=== PATIENT | male | born 1990 | race Caucasian/White ===

== ENCOUNTER 2020-04-01 16:09 | Inpatient (IN) | payer OTHER ==
[~2020-04-01] VITALS: Ht 167.6 cm; Wt 62.1 kg
[2020-04-01] MEDS ORDERED: IV NORMAL SALINE 1000 ML BAG IV ONE (16:15)
[2020-04-01] MEDS ORDERED: PANTOPRAZOLE SODIUM 40 MG VIAL IV ONE (16:15)
[2020-04-01] MEDS ORDERED: ONDANSETRON 4 MG/2 ML VIAL IV ONE (16:15)
[2020-04-01] MEDS ORDERED: OCTREOTIDE ACETATE DRIP 1,250 MCG in IV NORMAL SALINE 250 ML IV ONE (16:15)
[2020-04-01] MEDS ORDERED: PANTOPRAZOLE SODIUM 40 MG VIAL ONE (16:44)
[2020-04-01] MEDS ORDERED: ONDANSETRON 4 MG/2 ML VIAL ONE (16:44)
[2020-04-01 16:50] LABS: BASOPHILS # (AUTO) 0.1 K/uL (0.0-8.0); BASOPHILS % (AUTO) 0.9 % (0.0-2.0); EOSINOPHILS # (AUTO) 0.1 K/uL (0.0-0.7); EOSINOPHILS % (AUTO) 0.4 % (0.0-7.0); HEMATOCRIT 21.6 % (36.7-47.1); HEMOGLOBIN 7.5 g/dL (12.5-16.3); LYMPHOCYTES % (AUTO) 7.9 % (20.5-51.5); MEAN CORPUSCULAR HEMOGLOBIN 39.2 uug (23.8-33.4); MEAN CORPUSCULAR HGB CONC 35 g/dL (32.5-36.3); MEAN CORPUSCULAR VOLUME 112.8 fL (73.0-96.2); MONOCYTES # (AUTO) 1.4 K/uL (2.0-10.0); MONOCYTES % (AUTO) 11.2 % (0.0-11.0); NEUTROPHILS # (AUTO) 10.1 K/uL (1.8-8.9); NEUTROPHILS % (AUTO) 79.6 % (38.5-71.5); PLATELET COUNT (AUTO) 187 K/uL (152-348); WHITE BLOOD COUNT (AUTO) 12.7 K/uL (3.6-10.2)
[2020-04-01 17:03] LABS: MAGNESIUM 1.4 mg/dL (1.8-2.4); PHOSPHOROUS 1.4 mg/dL (2.5-4.9)
[2020-04-01 17:07] LABS: RED BLOOD CELL COUNT(AUTO) 1.92 MIL/uL (4.06-5.63)
[2020-04-01 17:17] LABS: CREATININE 0.9 mg/dL (0.6-1.3); TOTAL PROTEIN, SERUM 7.5 g/dL (6.4-8.2)
[2020-04-01 17:19] LABS: ACETAMINOPHEN < 2.0 ug/mL (10-30)
[2020-04-01 17:24] LABS: POTASSIUM 1.5 mmol/L (3.5-5.1)
[2020-04-01] MEDS ORDERED: IV D5/ 0.9% NACL 1,000 ML IV ONE (17:30)
[2020-04-01] MEDS ORDERED: THIAMINE HCL INJ 100 MG in IV DEXTROSE 5% 50 ML IV SCH (17:30)
--- NOTE | 2020-04-01 17:35 | NUR ---
Attempted to palce NG, pt able to follow directions moderatly but started having nose bleed. Dr Wyatt made awre.
[2020-04-01 17:38] LABS: ETHANOL < 3 MG/DL (0-0)
[2020-04-01 17:55] LABS: *OCCULT BLOOD STOOL POSITIVE (NEGATIVE)
[2020-04-01] MEDS: FOLIC ACID 1 MG in IV DEXTROSE 5% 50 ML IV SCH (18:00)
[2020-04-01] MEDS ORDERED: THIAMINE HCL 200 MG/2 ML VIAL ONE (18:09)
[2020-04-01] MEDS ORDERED: FOLIC ACID 5 MG/ML VIAL IV ONE (18:10)
[2020-04-01] MEDS: POTASSIUM CHLORIDE 50 ML IV SCH ×2 (18:36→20:59)
--- NOTE | 2020-04-01 18:40 | NUR ---
Paged [facility] for admit, awaiting call back.
--- NOTE | 2020-04-01 18:52 | NUR ---
CRISTY Selby spoke to [facility] [employer]NER for admit to CCU.
--- NOTE | 2020-04-01 18:53 | NUR ---
Spoke to cruzito Adame for LTAC, located within [facility].
[2020-04-01] MEDS ORDERED: ONDANSETRON 4 MG/2 ML VIAL IV PRN (19:00)
[2020-04-01] MEDS ORDERED: OCTREOTIDE ACETATE DRIP 1,250 MCG in IV NORMAL SALINE 247.5 ML IV PRN (19:00)
--- NOTE | 2020-04-01 20:00 | NUR ---
Karli More SECONDARY SCHOOL TEACHER LIBRARIAN in unit, though patient has yet to arrive in the unit. All admission orders discussed and clarified. ED order for potassium and magnesium replacement to be completed, and 1 unit PRBCs to be transfused.
--- NOTE | 2020-04-01 20:05 | NUR ---
Received patient from ER via gurney. Patient is a 30 y/o male who is very ill appearing with complete body jaundice and yellowing of the sclera. Abdomen is distended with tenderness present. Patient is not currently alert drifting in and out of consciousness, but responding to touch. Patient presented to the ED complaining of coffee ground emesis and bloody stool. This patient has a history of chronic heavy ETOH abuse and liver failure. Diagnosis from ED is esophageal varices and GI bleed. Patient arrived in street clothes with a 20g peripheral IV in the left AC and the CHASTITY. Patient is currently on Sandostatin drip @50mcg/hr. Patient has dried blood around the nares from failed NGT placement in ER resulting in epistaxis. Patient arrived in the unit with a large black and tarry stool which had soiled his clothes. Patient also hiccuping on arrival. Patient cleaned, placed in a gown and hooked up to the monitor.
--- NOTE | 2020-04-01 20:07 | NUR ---
Pt. admitted to CCU , under care of DELLA Calvillo Belongs List completed and all belongings sent, lunchroom monitor used for transfer
[2020-04-01 20:10] VITALS: BP 123/67
[2020-04-01] MEDS ORDERED: IV D5W-0.45% NS +20 KCL 1,000 ML IV ONE (20:54)
[2020-04-01 21:00] VITALS: BP 117/64
[2020-04-01] MEDS: IV D5W-0.45% NS +20 KCL 1,000 ML IV PRN (21:03)
[2020-04-01 21:35] VITALS: BP 115/71
[2020-04-01 21:50] VITALS: BP 98/58
[2020-04-01] MEDS ORDERED: HEPARIN SODIUM,PORCINE 5,000 UNITS/ML VIAL SQ STA (21:55)
[2020-04-01 22:00] VITALS: BP 93/52
[2020-04-01] MEDS ORDERED: HEPARIN/D5W DRIP 500 ML IV PRN (22:00)
[2020-04-01] MEDS: PANTOPRAZOLE SODIUM 40 MG VIAL IV SCH (22:03)
[2020-04-01] MEDS: MAGNESIUM SULFATE/D5W 100 ML IV SCH (22:55)
[2020-04-01 23:00] VITALS: BP 115/56
[2020-04-02] VITALS (41 sets, daily range): BP systolic 78–147; BP diastolic 40–78
[2020-04-02] MEDS: MAGNESIUM SULFATE/D5W 100 ML IV SCH (00:10)
--- NOTE | 2020-04-02 00:30 | NUR ---
Blood transfusion complete, no reactions noted. H&H to be drawn in 1 hour.
[2020-04-02 01:07] LABS: *CLARITY,URINE SLIGHTLY CLOUDY (CLEAR); *KETONES,URINE NEGATIVE (NEGATIVE); *UROBILINOGEN,URINE 0.2 E.U./dl (NORMAL); LEUKOCYTE ESTERASE ,URINE NEGATIVE (NEGATIVE); NITRITE, URINE NEGATIVE (NEGATIVE); PH,URINE 6.5 (5.0-8.0); UGLUCOSE TRACE (NEGATIVE)
[2020-04-02 01:11] LABS: *BILIRUBIN,URIN 3+ (NEGATIVE); *BLOOD, URINE TRACE (NEGATIVE)
[2020-04-02 01:12] LABS: *COLOR,URINE ORANGE (YELLOW)
[2020-04-02 01:17] LABS: *AMPHETAMINE, URINE NEGATIVE (NEGATIVE); *CANNABINOID, URINE NEGATIVE (NEGATIVE); *COCCAINE, URINE NEGATIVE (NEGATIVE); *OPIATE, URINE NEGATIVE (NEGATIVE); *PHENCYCLIDINE SCREEN,URINE NEGATIVE (NEGATIVE); BACTERIA,URINE NONE SEEN /HPF (NONE SEEN); MUCUS,URINE FEW /LPF (0-FEW); SQUAMOUS EPITHELIAL CELL,UR FEW /HPF (NONE SEEN); WBC,URINE 0-3 /HPF (0-3)
[2020-04-02 01:52] LABS: HEMATOCRIT 22.9 % (36.7-47.1); HEMOGLOBIN 8.1 g/dL (12.5-16.3)
[2020-04-02] MEDS ORDERED: THIAMINE HCL INJ 100 MG in IV DEXTROSE 5% 50 ML IV SCH ×2 (06:30→08:00)
[2020-04-02] MEDS: OCTREOTIDE ACETATE DRIP 500 MCG in IV NORMAL SALINE 99 ML IV SCH ×2 (06:47→16:30)
[2020-04-02 07:00] LABS: BILIRUBIN,TOTAL 29.3 mg/dL (0.2-1.0); CREATININE 1.1 mg/dL (0.6-1.3); TOTAL PROTEIN, SERUM 6.5 g/dL (6.4-8.2)
[2020-04-02 07:03] LABS: PHOSPHOROUS 0.5 mg/dL (2.5-4.9); POTASSIUM 1.6 mmol/L (3.5-5.1)
[2020-04-02 08:03] LABS: BASOPHILS # (AUTO) 0.2 K/uL (0.0-8.0); BASOPHILS % (AUTO) 1.5 % (0.0-2.0); EOSINOPHILS # (AUTO) 0.1 K/uL (0.0-0.7); EOSINOPHILS % (AUTO) 0.5 % (0.0-7.0); HEMATOCRIT 23.2 % (36.7-47.1); HEMOGLOBIN 8.2 g/dL (12.5-16.3); LYMPHOCYTES # (AUTO) 2.3 K/uL (20.0-40.0); LYMPHOCYTES % (AUTO) 17.8 % (20.5-51.5); MEAN CORPUSCULAR HEMOGLOBIN 38.2 uug (23.8-33.4); MEAN CORPUSCULAR HGB CONC 36 g/dL (32.5-36.3); MEAN CORPUSCULAR VOLUME 107.6 fL (73.0-96.2); MONOCYTES # (AUTO) 0.8 K/uL (2.0-10.0); MONOCYTES % (AUTO) 6.1 % (0.0-11.0); NEUTROPHILS # (AUTO) 9.7 K/uL (1.8-8.9); NEUTROPHILS % (AUTO) 74.1 % (38.5-71.5); PLATELET COUNT (AUTO) 156 K/uL (152-348); WHITE BLOOD COUNT (AUTO) 13.1 K/uL (3.6-10.2)
[2020-04-02 08:11] LABS: RED BLOOD CELL COUNT(AUTO) 2.16 MIL/uL (4.06-5.63)
[2020-04-02] MEDS: CEFTRIAXONE 1 G in IV DEXTROSE 5% 50 ML IV SCH (08:12)
[2020-04-02] MEDS: PANTOPRAZOLE SODIUM 40 MG VIAL IV SCH ×2 (08:12→20:48)
[2020-04-02] MEDS ORDERED: CEFTRIAXONE 1 G VIAL IV SCH (09:00)
[2020-04-02] MEDS: IV D5W-0.45% NS +20 KCL 1,000 ML IV PRN (09:59)
--- NOTE | 2020-04-02 10:00 | NUR ---
Patient examine by cardiology services, Dr. Lomeli.
[2020-04-02] MEDS ORDERED: MORPHINE SULFATE 2 MG/1 ML DISP.SYRIN IM PRN (10:30)
[2020-04-02] MEDS ORDERED: PHYTONADIONE 10 MG/1 ML AMPUL SQ ONE (10:45)
[2020-04-02] MEDS: LORAZEPAM 2 MG/1 ML VIAL IV PRN (12:54)
[2020-04-02] MEDS: POTASSIUM CHLORIDE 20 MEQ in IV D5/ 0.9% NACL 1,000 ML IV PRN (14:23)
[2020-04-02] MEDS ORDERED: ACETAMINOPHEN 325 MG TABLET PO ONE (15:00)
[2020-04-02] MEDS ORDERED: diphenhydrAMINE 50 MG/1 ML VIAL IV ONE (15:00)
[2020-04-02] MEDS ORDERED: POTASSIUM PHOSPHATE MM 15 MMOL in IV NORMAL SALINE 250 ML IV ONE (15:30)
[2020-04-02] MEDS: LACTULOSE 20 G/30 ML LIQUID UDC PO SCH ×3 (15:34→23:38)
--- NOTE | 2020-04-02 15:35 | NUR ---
A call to Dr. Tico Damian she was informed that pt. is bleeding with minor procedures, and that patient is semi-lethargic with high risk of aspiration. Addendum: 04/02/20 at 1645 by SANDOR LUGO RN Benadryl also not given pt,. with 1st plasma almost finished when order received Md informed.
[2020-04-02 15:55] LABS: IRON, SERUM 105 ug/dL (50-175)
[2020-04-02 16:31] LABS: FERRITIN 1897 ng/mL (26-388); LACTATE DEHYDROGENASE 355 U/L (85-227)
[2020-04-02] MEDS: POTASSIUM PHOSPHATE MM 7.5 MMOL in IV NORMAL SALINE 97.5 ML IV SCH ×2 (17:06→19:52)
[2020-04-02 18:10] LABS: BAND % (MANUAL) 4 % (0-10); LYMPHOCYTES % (MANUAL) 8 % (20-40); MONOCYTES % (MANUAL) 4 % (2-10); NEUTROPHILS % (MANUAL) 84 % (42-75)
[2020-04-02] MEDS: THIAMINE HCL INJ 100 MG in IV DEXTROSE 5% 50 ML IV SCH (18:10)
[2020-04-02] MEDS: VASOPRESSIN 40 UNIT in IV NORMAL SALINE 40 ML IV PRN ×2 (18:25→20:46)
[2020-04-02] MEDS: FOLIC ACID 1 MG in IV DEXTROSE 5% 50 ML IV SCH (18:39)
--- NOTE | 2020-04-02 19:00 | NUR ---
Received patient in bed asleep. Patient is minimally responsive to touch and his mental status is altered. Patient remains in a state of severe coagulopathy and is currently receiving a second unit of FFP. It is unlikely that the patient will be able to take his PO medications due to his mental status. Previous failed attempts at inserting an NG tube resulted in bleeding from the nose. The epistaxis from previous attempts and the patients coagulation issues preclude placing an NG tube at this time.
--- NOTE | 2020-04-02 20:00 | NUR ---
Unable to administer PO medications due to patients mental status. Patient is not currently alert and not able to take PO medications.
--- NOTE | 2020-04-02 23:49 | NUR ---
Attempted to arouse the patient to take his PO medications. Patient remains responsive only to touch and is not alert enough to take his PO medications.
[2020-04-03] VITALS (96 sets, daily range): BP systolic 94–163; BP diastolic 40–96
[2020-04-03] MEDS: VASOPRESSIN 40 UNIT in IV NORMAL SALINE 40 ML IV PRN ×5 (00:57→20:37)
[2020-04-03] MEDS: POTASSIUM CHLORIDE 20 MEQ in IV D5/ 0.9% NACL 1,000 ML IV PRN ×2 (03:07→17:38)
[2020-04-03] MEDS: LACTULOSE 20 G/30 ML LIQUID UDC PO SCH ×2 (04:00→08:00)
[2020-04-03 05:49] LABS: MAGNESIUM 1.7 mg/dL (1.8-2.4); TOTAL PROTEIN, SERUM 6.6 g/dL (6.4-8.2)
[2020-04-03 05:51] LABS: BASOPHILS # (AUTO) 0.1 K/uL (0.0-8.0); BASOPHILS % (AUTO) 0.6 % (0.0-2.0); EOSINOPHILS % (AUTO) 0.3 % (0.0-7.0); LYMPHOCYTES # (AUTO) 1.9 K/uL (20.0-40.0); LYMPHOCYTES % (AUTO) 19.6 % (20.5-51.5); MEAN CORPUSCULAR HEMOGLOBIN 40.4 uug (23.8-33.4); MEAN CORPUSCULAR HGB CONC 37 g/dL (32.5-36.3); MEAN CORPUSCULAR VOLUME 109.2 fL (73.0-96.2); MONOCYTES # (AUTO) 0.8 K/uL (2.0-10.0); MONOCYTES % (AUTO) 8.8 % (0.0-11.0); NEUTROPHILS # (AUTO) 6.8 K/uL (1.8-8.9); NEUTROPHILS % (AUTO) 70.7 % (38.5-71.5); PLATELET COUNT (AUTO) 117 K/uL (152-348); WHITE BLOOD COUNT (AUTO) 9.6 K/uL (3.6-10.2)
[2020-04-03 05:57] LABS: PHOSPHOROUS 0.7 mg/dL (2.5-4.9); POTASSIUM 1.2 mmol/L (3.5-5.1)
[2020-04-03 06:03] LABS: HEMATOCRIT 18.6 % (36.7-47.1)
[2020-04-03 06:05] LABS: HEMOGLOBIN 6.9 g/dL (12.5-16.3)
--- NOTE | 2020-04-03 06:50 | NUR ---
Patient remains in critical condition. Patient still with a very altered level of consciousness, responsive to touch and pain. Several critical labs resulted including hemoglobin, hematocrit, potassium, and phosphorus. Several called placed to Dr. Ortiz without any return call. Attempting to escalate to a higher physician. Will continue to endorse this urgent matter to the day shift RN.
--- NOTE | 2020-04-03 07:35 | NUR ---
Contacted Dr. Cobian about the lactulose order as patient cannot take po lactulose. orders received to give rectal 200g BID.
[2020-04-03] MEDS ORDERED: POTASSIUM PHOSPHATE MM 15 MMOL in IV NORMAL SALINE 250 ML IV ONE ×2 (08:00→14:00)
[2020-04-03] MEDS: CEFTRIAXONE 1 G in IV DEXTROSE 5% 50 ML IV SCH (08:24)
[2020-04-03] MEDS: PANTOPRAZOLE SODIUM 40 MG VIAL IV SCH ×2 (08:24→20:40)
[2020-04-03] MEDS: LORAZEPAM 2 MG/1 ML VIAL IV PRN (09:04)
--- NOTE | 2020-04-03 09:33 | NUR ---
Contacted Dr. Lomeli as patient's HR is elevated to 129, reported electrolyte levels and orders received for redraw of potassium and to give 20 meq potassium chloride IV.
[2020-04-03] MEDS: MAGNESIUM SULFATE/D5W 100 ML IV SCH ×2 (10:04→10:58)
[2020-04-03 10:53] LABS: POTASSIUM 1.3 mmol/L (3.5-5.1)
[2020-04-03] MEDS: POTASSIUM CHLORIDE 50 ML IV SCH ×8 (10:59→23:35)
[2020-04-03] MEDS: IRR STERIL WATER FOR IRR 700 ML, LACTULOSE 200 G PR SCH ×4 (11:20→22:02)
[2020-04-03] MEDS ORDERED: MISCELLANEOUS MED RC SCH (12:00)
[2020-04-03 17:09] LABS: *CHLORIDE RNDM,URINE 138 mmol/L (100-250); *POTASSIUM RNDM,URINE 14 mmol/L (25-125)
[2020-04-03] MEDS ORDERED: ACETAMINOPHEN 325 MG TABLET PO ONE (17:15)
[2020-04-03] MEDS ORDERED: diphenhydrAMINE 50 MG/1 ML VIAL IV ONE (17:15)
[2020-04-03] MEDS ORDERED: VASOPRESSIN 40 UNIT in IV NORMAL SALINE 40 ML IV PRN (18:00)
--- NOTE | 2020-04-03 19:27 | NUR ---
Dr. Doshi notified of DIC panel results. Orders received. Spoke to Brayden in laboratory re: FFPs; will be ready for citrus picker at 2200 (no available blood bank personnel till 2200).
--- NOTE | 2020-04-03 19:30 | NUR ---
Patient continues to be confused, on room air saturation 100%, sinus rhythm on the monitor 75BPM, hemodynamically stable, afebrile. Johnson draining dark orange urine. Bed in low position, side rails up x2.
[2020-04-03] MEDS: FOLIC ACID 1 MG in IV DEXTROSE 5% 50 ML IV SCH (19:33)
--- NOTE | 2020-04-03 19:35 | NUR ---
Report received. Patient obtunded, with hiccups, grimaces to pain but no appropriate verbal responses. BPs stable; SR on the monitor rate 70's-80's. On continuous Vasopressin drip via CHASTITY PICC line. Assessment done.
[2020-04-03 20:05] LABS: BAND % (MANUAL) 6 % (0-10); EOSINOPHILS % (MANUAL) 1 % (0-8); LYMPHOCYTES % (MANUAL) 15 % (20-40); MONOCYTES % (MANUAL) 6 % (2-10); NEUTROPHILS % (MANUAL) 72 % (42-75)
[2020-04-03] MEDS: THIAMINE HCL INJ 100 MG in IV DEXTROSE 5% 50 ML IV SCH (20:06)
--- NOTE | 2020-04-03 20:30 | NUR ---
Spoke to Etta Cobian re: Kcl infusion. Advised RN to repeat K level after infusion is completed. Patient medicated with Thorazine IM for hiccups.
[2020-04-03] MEDS: chlorproMAZINE 50 MG/2 ML AMPUL IM PRN (20:35)
--- NOTE | 2020-04-03 21:10 | NUR ---
Dr. Nolan called with orders. Kcl infusion in progress. Patient continues to have hiccups. O2 saturations maintaining above 95% on room air.
--- NOTE | 2020-04-03 22:38 | NUR ---
1st unit of FFPs started. VS stable. Still with on and off hiccups.
--- NOTE | 2020-04-03 22:47 | NUR ---
Dr. Nolan notified of K level=1.5. 1st bag of Kcl 60 meq infusing. No further orders.
--- NOTE | 2020-04-03 23:15 | NUR ---
O2 saturations in the 70's. Noted to have stridor and increased work of breathing. O2 100% non rebreather mask administered; saturations improved. Calls placed to Dr. Cobian and patient's sister Trinidad. Order received from Dr. Cobian to have ER MD intubate patient. Patient's sister Trinidad informed of intubation and patient's condition; verbalized that she wants everything done for her brother. RT Zachary informed of intubation procedure. Spoke to Dr. Javed REYES.
[2020-04-03] MEDS ORDERED: ETOMIDATE 20 MG/10 ML VIAL IV ONE (23:30)
[2020-04-03] MEDS ORDERED: SUCCINYLCHOLINE CHLORIDE 200 MG/10 ML VIAL IV ONE (23:30)
--- NOTE | 2020-04-03 23:30 | NUR ---
Pt intubated by ED MD UREÑA and subsequently placed on ventilator settings AC 12, 500 and FIO2-100%. Pt to be monitored throughout the shift. No resp. distress noted.
--- NOTE | 2020-04-03 23:35 | NUR ---
Dr. Burt and RTs here. Patient orally intubated with ETT size 7.5; premedicated with Etomidate 20 mg and Succinylcholine 150 mg IV. PCXR done for ETT placement.
[2020-04-03] MEDS: PROPOFOL 100 ML IV PRN (23:52)
--- NOTE | 2020-04-03 23:55 | NUR ---
ETT placement ok as per Dr. Burt. Patient's sister Trinidad called verbalizing desire to visit and see patient; advised of hospital policy re: visitation. Will discuss with [employer] Manager Tamika. Sister was able to see patient via Face time.
[2020-04-04] VITALS (58 sets, daily range): BP systolic 82–138; BP diastolic 37–83
[2020-04-04] MEDS: POTASSIUM CHLORIDE 50 ML IV SCH ×20 (00:43→23:11)
--- NOTE | 2020-04-04 01:20 | NUR ---
ABGs done; Francois Meier notified of results. FIO2 decreased to 60% by RT. Diprivan drip titrate for adequate sedation.
[2020-04-04] MEDS: VASOPRESSIN 40 UNIT in IV NORMAL SALINE 40 ML IV PRN (01:23)
[2020-04-04] MEDS ORDERED: OCTREOTIDE ACETATE DRIP 500 MCG in IV NORMAL SALINE 99 ML IV PRN (01:45)
--- NOTE | 2020-04-04 01:55 | NUR ---
Stat H/H drawn by [employer] as ordered by Francois Meier NP; awaiting results.
[2020-04-04 02:04] LABS: HEMATOCRIT 21.2 % (36.7-47.1); HEMOGLOBIN 7.7 g/dL (12.5-16.3)
[2020-04-04] MEDS ORDERED: OCTREOTIDE ACETATE 500 MCG/1 ML VIAL ONE (02:16)
--- NOTE | 2020-04-04 02:23 | NUR ---
Sandostatin drip started as ordered by Speedy Meier NP. Aubrie iraheta.
--- NOTE | 2020-04-04 02:47 | NUR ---
Results of H/H called to Francois Meier NP; orders received.
--- NOTE | 2020-04-04 03:00 | NUR ---
Diprivan drip titrated for adequate sedation. See IV spread sheet for rates/dosages.
[2020-04-04] MEDS: PROPOFOL 100 ML IV PRN ×4 (05:26→21:50)
--- NOTE | 2020-04-04 06:00 | NUR ---
ABGS drawn by RT. IM0=442; FIO2 decreased to 40% by RT.
[2020-04-04] MEDS: POTASSIUM CHLORIDE 20 MEQ in IV D5/ 0.9% NACL 1,000 ML IV PRN (06:19)
[2020-04-04 06:24] LABS: BASOPHILS # (AUTO) 0.1 K/uL (0.0-8.0); BASOPHILS % (AUTO) 0.5 % (0.0-2.0); EOSINOPHILS % (AUTO) 0.4 % (0.0-7.0); HEMATOCRIT 21.5 % (36.7-47.1); HEMOGLOBIN 7.7 g/dL (12.5-16.3); LYMPHOCYTES # (AUTO) 1.9 K/uL (20.0-40.0); MEAN CORPUSCULAR HEMOGLOBIN 38.1 uug (23.8-33.4); MEAN CORPUSCULAR HGB CONC 36 g/dL (32.5-36.3); MEAN CORPUSCULAR VOLUME 105.9 fL (73.0-96.2); MONOCYTES % (AUTO) 9.7 % (0.0-11.0); NEUTROPHILS # (AUTO) 7.2 K/uL (1.8-8.9); NEUTROPHILS % (AUTO) 70.4 % (38.5-71.5); PLATELET COUNT (AUTO) 121 K/uL (152-348); WHITE BLOOD COUNT (AUTO) 10.3 K/uL (3.6-10.2)
[2020-04-04 06:31] LABS: RED BLOOD CELL COUNT(AUTO) 2.03 MIL/uL (4.06-5.63)
[2020-04-04 06:46] LABS: THYROID STIMULATING HORMONE 0.077 mIU/mL (0.358-3.740)
[2020-04-04 06:55] LABS: BILIRUBIN,TOTAL 36.3 mg/dL (0.2-1.0); MAGNESIUM 2.2 mg/dL (1.8-2.4); TOTAL PROTEIN, SERUM 6.6 g/dL (6.4-8.2)
[2020-04-04 06:58] LABS: POTASSIUM 1.4 mmol/L (3.5-5.1)
[2020-04-04 06:59] LABS: PHOSPHOROUS 0.8 mg/dL (2.5-4.9)
[2020-04-04] MEDS ORDERED: ETOMIDATE 20 MG/10 ML VIAL IV ONE ×2 (07:00→18:19)
[2020-04-04] MEDS ORDERED: SUCCINYLCHOLINE CHLORIDE 200 MG/10 ML VIAL IV ONE (07:00)
--- NOTE | 2020-04-04 07:30 | NUR ---
PT RECEIVED ORALLY INTUBATED WITH A SIZE 7.5 ETT SECURED WITH ANCHOR-FAST APPROX. 25CM AT THE LIP. PT IS ON CMV ON SETTINGS OF A/C 12, VT 500, 40%, 0 PEEP. VENT PARAMETERS AND ALARMS CHECKED, ALARMS ARE AUDIBLE. PT IS TOLERATING VENT WELL, NO RESP. DISTRESS NOTED. BVM AT BEDSIDE. VENT PLUGGED INTO RED OUTLET. SUCTION PRN. WILL CONTINUE TO MONITOR.
[2020-04-04] MEDS ORDERED: POTASSIUM PHOSPHATE MM 15 MMOL in IV NORMAL SALINE 250 ML IV ONE (08:00)
[2020-04-04] MEDS: CEFTRIAXONE 1 G in IV DEXTROSE 5% 50 ML IV SCH (08:39)
[2020-04-04] MEDS: PANTOPRAZOLE SODIUM 40 MG VIAL IV SCH (08:43)
[2020-04-04] MEDS: IRR STERIL WATER FOR IRR 700 ML, LACTULOSE 200 G PR SCH ×4 (08:44→21:44)
[2020-04-04 09:46] LABS: HEMATOCRIT 24.6 % (36.7-47.1)
[2020-04-04] MEDS: SPIRONOLACTONE 50 MG TABLET PO SCH (10:00)
[2020-04-04] MEDS ORDERED: PANTOPRAZOLE SODIUM IV 80 MG in IV DEXTROSE 5% 500 ML IV SCH (10:00)
--- NOTE | 2020-04-04 10:27 | NUR ---
a call from GI physician Dr. Villarreal report given and as stated by Md. He'll talk to family and later on consent for endoscopy.
--- NOTE | 2020-04-04 10:45 | NUR ---
Pulmonary services, Dr. Andres in the unit to see and examine pt. Report given.
--- NOTE | 2020-04-04 10:46 | NUR ---
Attending physician Dr. Gerald Echeverria in the unit to see and examine pt. report given.
[2020-04-04 11:56] LABS: ABG BASE EXCESS 2.7 mmol/L; ABG PCO2 24.9 mmHg (35.0-45.0); ABG PH 7.601 (7.350-7.450); ABG PO2 286.7 mmHg (75.0-100.0); ABG SITE LEFT BRACHIAL; ABG TOTAL HEMOGLOBIN 8.4 G/dL (13.5-18.0); MetHb 0.3 % (0.0-1.5); O2Hb 96.4 % (94.0-97.0); VENT MODE VENT - A/C
[2020-04-04 11:58] LABS: ABG BASE EXCESS 1.6 mmol/L; ABG PCO2 24.7 mmHg (35.0-45.0); ABG PH 7.586 (7.350-7.450); ABG PO2 264.9 mmHg (75.0-100.0); ABG SITE LEFT BRACHIAL; ABG TOTAL HEMOGLOBIN 8.5 G/dL (13.5-18.0); COHb 2.3 % (0.5-1.5); O2Hb 97.4 % (94.0-97.0); VENT MODE VENT - A/C; VT, ABG 500 mL
--- NOTE | 2020-04-04 13:23 | NUR ---
PO medications unable to be administered no NG-T pt. with bleeding.
[2020-04-04 15:08] LABS: A/G RATIO 0.6 (0.7-1.7); ALBUMIN 2.5 g/dL (2.9-4.4); ALPHA-1-GLOBULIN 0.3 g/dL (0.0-0.4); ALPHA-2-GLOBULIN 0.6 g/dL (0.4-1.0); BETA GLOBULIN 1.3 g/dL (0.7-1.3); GAMMA GLOBULIN 1.7 g/dL (0.4-1.8); M-SPIKE Not Observed g/dL (Not Observed)
[2020-04-04] MEDS ORDERED: ACETAMINOPHEN 325 MG TABLET PO ONE (16:45)
[2020-04-04] MEDS ORDERED: diphenhydrAMINE 50 MG/1 ML VIAL IV ONE (16:45)
[2020-04-04] MEDS: FOLIC ACID 1 MG in IV DEXTROSE 5% 50 ML IV SCH (16:53)
[2020-04-04] MEDS ORDERED: ACETAMINOPHEN 650 MG SUPP.RECT RC PRN ×2 (17:15)
[2020-04-04] MEDS: THIAMINE HCL INJ 100 MG in IV DEXTROSE 5% 50 ML IV SCH (17:22)
--- NOTE | 2020-04-04 17:48 | NUR ---
patient taken down for EGD vitals stable. patient taken via bed by rn and RT. IV lines patent. chart with pt.
--- NOTE | 2020-04-04 18:50 | NUR ---
Patient back from [facility] and as reported EGD done successfully esophageal bleeding clipped by Dr. Villarreal. upon arrival pt's vitals stable. HR of 74, sbp of 105/57 100% FIO2.
--- NOTE | 2020-04-04 19:30 | NUR ---
Report received. Patient S/P EGD with banding of Esophageal varices. Orally intubated and to mechanical ventilator with settings: AC=12, FIO2=40% PC=431 ml. Saturations 98-100%. Sedated, on continuous Propofol drip at 50 mcg/kg/min. Assessment done. Pharmacist called re: Protonix drip changes discussed. See eMAR. Blood bank informed of FFP order; spoke to Brayden. No available FFP for now. Will follow up. Addendum: 04/04/20 at 2310 by GHASSAN POZO RN Amended: Links added. Addendum: 04/05/20 at 0046 by GHASSAN POZO RN Amended: Links added.
[2020-04-04] MEDS: PANTOPRAZOLE SODIUM IV 40 MG in IV DEXTROSE 5% 100 ML IV SCH (19:49)
[2020-04-04] MEDS ORDERED: NOREPINEPHRINE BITARTRATE 8 MG in IV NORMAL SALINE 242 ML IV PRN (21:30)
--- NOTE | 2020-04-04 21:35 | NUR ---
Call placed to Madhav Adames re: SBPs in the 80's; order received for Levophed drip PRN. Diprivan drip titrated down. See IV spread sheet for rates/dosages. Addendum: 04/04/20 at 2256 by GHASSAN POZO RN Amended: Links added. Addendum: 04/04/20 at 2257 by GHASSAN POZO RN Amended: Links added. Addendum: 04/04/20 at 2258 by GHASSAN POZO RN Amended: Links added. Addendum: 04/04/20 at 2259 by GHASSAN POZO RN Amended: Links added.
[2020-04-04 21:52] LABS: PHOSPHOROUS 1.3 mg/dL (2.5-4.9)
[2020-04-04 22:05] LABS: POTASSIUM 1.9 mmol/L (3.5-5.1)
--- NOTE | 2020-04-04 22:06 | NUR ---
Madhav Adames informed of Serum K level; order received. Addendum: 04/04/20 at 2254 by GHASSAN POZO RN Amended: Links added. Addendum: 04/04/20 at 2256 by GHASSAN POZO RN Amended: Links added. Addendum: 04/04/20 at 2257 by GHASSAN POZO RN Amended: Links added. Addendum: 04/04/20 at 2258 by GHASSAN POZO RN Amended: Links added. Addendum: 04/04/20 at 4823 by GHASSAN POZO RN Amended: Links added.
--- NOTE | 2020-04-04 22:59 | NUR ---
Spoke to Radha in blood bank; no available FFP from [facility]. Will notify RN if a unit is available.
[2020-04-04 23:42] LABS: *CHLORIDE RNDM,URINE 30 mmol/L (100-250); *POTASSIUM RNDM,URINE 15 mmol/L (25-125)
[2020-04-05] VITALS (45 sets, daily range): BP systolic 87–126; BP diastolic 36–72
[2020-04-05] MEDS: POTASSIUM CHLORIDE 50 ML IV SCH ×13 (00:09→22:55)
[2020-04-05] MEDS: PANTOPRAZOLE SODIUM IV 40 MG in IV DEXTROSE 5% 100 ML IV SCH ×2 (00:35→05:27)
[2020-04-05] MEDS: POTASSIUM CHLORIDE 20 MEQ in IV D5/ 0.9% NACL 1,000 ML IV PRN ×2 (03:53→22:19)
[2020-04-05] MEDS: PROPOFOL 100 ML IV PRN ×3 (03:53→20:02)
[2020-04-05 05:11] LABS: HAPTOGLOBIN 57 mg/dL (17-317)
[2020-04-05 05:23] LABS: BASOPHILS # (AUTO) 0.1 K/uL (0.0-8.0); BASOPHILS % (AUTO) 0.7 % (0.0-2.0); EOSINOPHILS # (AUTO) 0.1 K/uL (0.0-0.7); HEMATOCRIT 24.4 % (36.7-47.1); HEMOGLOBIN 8.6 g/dL (12.5-16.3); LYMPHOCYTES # (AUTO) 2.6 K/uL (20.0-40.0); LYMPHOCYTES % (AUTO) 21.8 % (20.5-51.5); MEAN CORPUSCULAR HEMOGLOBIN 37.7 uug (23.8-33.4); MEAN CORPUSCULAR HGB CONC 35 g/dL (32.5-36.3); MEAN CORPUSCULAR VOLUME 106.5 fL (73.0-96.2); MONOCYTES # (AUTO) 1.1 K/uL (2.0-10.0); MONOCYTES % (AUTO) 9.4 % (0.0-11.0); NEUTROPHILS # (AUTO) 8.1 K/uL (1.8-8.9); NEUTROPHILS % (AUTO) 67.1 % (38.5-71.5); PLATELET COUNT (AUTO) 115 K/uL (152-348)
[2020-04-05 05:28] LABS: RED BLOOD CELL COUNT(AUTO) 2.29 MIL/uL (4.06-5.63)
[2020-04-05 05:34] LABS: CREATININE 1.2 mg/dL (0.6-1.3); MAGNESIUM 2.3 mg/dL (1.8-2.4); PHOSPHOROUS 1.6 mg/dL (2.5-4.9)
[2020-04-05 05:39] LABS: POTASSIUM 2.2 mmol/L (3.5-5.1)
--- NOTE | 2020-04-05 05:58 | NUR ---
PT ON CONT DREW VENT, INTUBATED, WITH SAME CURRENT VENT SETTINGS, PT IS SEDATED, SUCTIONED PALE YELL TINGE SECRETIONS, WITH SLIGHT PINKISH TINGE, CHANGE HME, MOVE ET/TUBE WITH ANCHOR FAST, NO VENT CHANGES MADE ALL VENT ALARMS GOOD, PPE USED.Jose Maria ROONEYP Addendum: 04/05/20 at 0600 by JESSICA JERONIMO RT Amended: Links added.
[2020-04-05] MEDS: Z GUARD REMEDY PASTE 57 GM TUBE TOP PRN ×2 (06:43→07:54)
--- NOTE | 2020-04-05 06:46 | NUR ---
Status unchanged. BPs in the 90's systole. Saturations 97-100% on current vent settings. Had 3 mucoid brown, green BM. Spoke to Francois Meier re: am labs including H/H and serum K level. Order received. Addendum: 04/05/20 at 0647 by GHASSAN POZO RN Amended: Links added. Addendum: 04/05/20 at 0647 by GHASSAN POZO RN Amended: Links added.
[2020-04-05] MEDS: CEFTRIAXONE 1 G in IV DEXTROSE 5% 50 ML IV SCH (07:53)
[2020-04-05] MEDS: SPIRONOLACTONE 50 MG TABLET PO SCH ×2 (07:56→08:03)
[2020-04-05] MEDS: PANTOPRAZOLE SODIUM 40 MG VIAL IV SCH (07:56)
[2020-04-05 09:03] LABS: ABG BASE EXCESS -2.3 mmol/L; ABG HCO3 20.4 mmol/L; ABG PCO2 27.7 mmHg (35.0-45.0); ABG PH 7.486 (7.350-7.450); ABG PO2 153.3 mmHg (75.0-100.0); ABG SITE RIGHT RADIAL; ABG TOTAL HEMOGLOBIN 8.7 G/dL (13.5-18.0); COHb 1.9 % (0.5-1.5); MetHb 0.3 % (0.0-1.5); O2Hb 97.4 % (94.0-97.0); VENT MODE VENT - A/C; VT, ABG 500 mL
--- NOTE | 2020-04-05 09:35 | NUR ---
Pt.was seen by with new orders.
[2020-04-05] MEDS ORDERED: POTASSIUM PHOSPHATE MM 15 MMOL in IV NORMAL SALINE 250 ML IV ONE ×3 (10:00→21:00)
[2020-04-05] MEDS: IRR STERIL WATER FOR IRR 700 ML, LACTULOSE 200 G PR SCH ×4 (11:11→21:15)
--- NOTE | 2020-04-05 11:15 | NUR ---
Pt.was seen by , was notified about aldactone not given Pt. NPO & no NG or OG.OK to hold.
--- NOTE | 2020-04-05 12:45 | NUR ---
Family on the phone,updated with pt.condition and plan of care.
--- NOTE | 2020-04-05 13:51 | NUR ---
Pt.was seen by with new orders.
--- NOTE | 2020-04-05 16:45 | NUR ---
Pt.was seen by CHAYO CABALLERO MD
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
[2020-04-05] MEDS ORDERED: LACTULOSE 20 G/30 ML LIQUID UDC PO SCH (17:00)
[2020-04-05] MEDS: FOLIC ACID 1 MG in IV DEXTROSE 5% 50 ML IV SCH (17:28)
[2020-04-05] MEDS: THIAMINE HCL INJ 100 MG in IV DEXTROSE 5% 50 ML IV SCH (17:28)
--- NOTE | 2020-04-05 18:55 | NUR ---
No changes in pt.condition,no s/s of distress.
[2020-04-05 20:20] LABS: PHOSPHOROUS 2.3 mg/dL (2.5-4.9)
[2020-04-05 20:24] LABS: POTASSIUM 2.5 mmol/L (3.5-5.1)
--- NOTE | 2020-04-05 22:38 | NUR ---
dr milligan is called to clarify order regarding k phos order per pharmacy request , phosphorous level of 2. 3 , received order to dc the order for tonight
[2020-04-06] VITALS (27 sets, daily range): BP systolic 91–116; BP diastolic 46–66
[2020-04-06] MEDS: POTASSIUM CHLORIDE 50 ML IV SCH ×9 (00:22→12:44)
[2020-04-06 05:14] LABS: BASOPHILS # (AUTO) 0.3 K/uL (0.0-8.0); BASOPHILS % (AUTO) 2.2 % (0.0-2.0); EOSINOPHILS # (AUTO) 0.1 K/uL (0.0-0.7); EOSINOPHILS % (AUTO) 0.9 % (0.0-7.0); HEMATOCRIT 30.1 % (36.7-47.1); HEMOGLOBIN 10.4 g/dL (12.5-16.3); LYMPHOCYTES # (AUTO) 2.2 K/uL (20.0-40.0); LYMPHOCYTES % (AUTO) 17.7 % (20.5-51.5); MEAN CORPUSCULAR HEMOGLOBIN 37.7 uug (23.8-33.4); MEAN CORPUSCULAR HGB CONC 35 g/dL (32.5-36.3); MEAN CORPUSCULAR VOLUME 108.8 fL (73.0-96.2); MONOCYTES # (AUTO) 1.3 K/uL (2.0-10.0); MONOCYTES % (AUTO) 10.4 % (0.0-11.0); NEUTROPHILS # (AUTO) 8.6 K/uL (1.8-8.9); NEUTROPHILS % (AUTO) 68.8 % (38.5-71.5); PLATELET COUNT (AUTO) 126 K/uL (152-348); RED BLOOD CELL COUNT(AUTO) 2.77 MIL/uL (4.06-5.63); WHITE BLOOD COUNT (AUTO) 12.5 K/uL (3.6-10.2)
[2020-04-06 05:36] LABS: BILIRUBIN,TOTAL 32.5 mg/dL (0.2-1.0); MAGNESIUM 2.3 mg/dL (1.8-2.4); PHOSPHOROUS 1.9 mg/dL (2.5-4.9); POTASSIUM 2.9 mmol/L (3.5-5.1); TOTAL PROTEIN, SERUM 6.7 g/dL (6.4-8.2)
[2020-04-06] MEDS: PROPOFOL 100 ML IV PRN ×2 (06:17→17:50)
[2020-04-06] MEDS: CEFTRIAXONE 1 G in IV DEXTROSE 5% 50 ML IV SCH (07:42)
[2020-04-06 08:11] LABS: ABG HCO3 16.8 mmol/L; ABG PCO2 24.6 mmHg (35.0-45.0); ABG PH 7.451 (7.350-7.450); ABG PO2 133.4 mmHg (75.0-100.0); ABG SITE RIGHT RADIAL; ABG TOTAL HEMOGLOBIN 9.6 G/dL (13.5-18.0); MetHb 0.3 % (0.0-1.5); O2Hb 96.9 % (94.0-97.0); VENT MODE VENT - A/C; VT, ABG 500 mL
--- NOTE | 2020-04-06 08:25 | NUR ---
PT.WAS SEEN BY CHARLY WELLSP
[2020-04-06] MEDS: PANTOPRAZOLE SODIUM 40 MG VIAL IV SCH (08:38)
[2020-04-06] MEDS: SPIRONOLACTONE 50 MG TABLET PO SCH (08:38)
[2020-04-06] MEDS: IRR STERIL WATER FOR IRR 700 ML, LACTULOSE 200 G PR SCH ×4 (08:51→20:54)
--- NOTE | 2020-04-06 09:35 | NUR ---
PT.WAS SEEN BY BERNARDO LOUISE MD
[2020-04-06] MEDS ORDERED: POTASSIUM PHOSPHATE MM 15 MMOL in IV NORMAL SALINE 250 ML IV ONE (10:00)
--- NOTE | 2020-04-06 11:35 | NUR ---
PT.WAS SEEN BY MIO BENAVIDEZ NP
--- NOTE | 2020-04-06 12:01 | NUR ---
WOUND CARE CONSULT: PT PRESENTS WITH BONY SACRAL AREA WITH SOME DISCOLORATION TO BUTTOCKS. PT HAS VERY JAUNDICED SKIN AND EDEMA. RECOMMENDATIONS MADE FOR SKIN PROTECTION. DISCUSSED WITH NURSING STAFF. IN AGREEMENT WITH PLAN OF CARE. Addendum: 04/06/20 at 1203 by KLEVER VELASQUEZ RN Amended: Links added.
--- NOTE | 2020-04-06 12:03 | NUR ---
PT.WAS SEEN BY
[2020-04-06] MEDS: POTASSIUM CHLORIDE 20 MEQ in IV D5 1/2 NS 1000 ML 1,000 ML IV PRN (12:52)
--- NOTE | 2020-04-06 15:30 | NUR ---
Family on the phone,updated with pt. status and plan of care.No changes in pt.condition, cont.to prone pt.
[2020-04-06] MEDS ORDERED: PHYTONADIONE 10 MG/1 ML AMPUL SQ ONE (16:45)
[2020-04-06] MEDS: THIAMINE HCL INJ 100 MG in IV DEXTROSE 5% 50 ML IV SCH (17:34)
[2020-04-06] MEDS: FOLIC ACID 1 MG in IV DEXTROSE 5% 50 ML IV SCH (17:34)
--- NOTE | 2020-04-06 19:30 | NUR ---
Report received. Patient orally intubated and to mechanical ventilator settings: EZ=813 ml, AC=12, FIO2=30%. O2 saturations above 97%. On continuous Diprivan drip at 25mcg/kg/min via CHASTITY PICC line. Turned and repositioned. Grimaces, eyes open and moves both arms up chest. Diprivan drip titrated up. Assessment done. Addendum: 04/06/20 at 2359 by GHASSAN POZO RN Amended: Links added. Addendum: 04/07/20 at 0002 by GHASSAN POZO RN Amended: Links added. Addendum: 04/07/20 at 0002 by GHASSAN POZO RN Amended: Links added. Addendum: 04/07/20 at 0003 by GHASSAN POZO RN Amended: Links added. Addendum: 04/07/20 at 0004 by GHASSAN POZO RN Amended: Links added. Addendum: 04/07/20 at 0004 by GHASSAN POZO RN Amended: Links added. Addendum: 04/07/20 at 0004 by GHASSAN POZO RN Amended: Links added. Addendum: 04/07/20 at 0005 by GHASSAN POZO RN Amended: Links added. Addendum: 04/07/20 at 0005 by GHASSAN POZO RN Amended: Links added. Addendum: 04/07/20 at 0005 by GHASSAN POZO RN Amended: Links added. Addendum: 04/07/20 at 0005 by GHASSAN POZO RN Amended: Links added. Addendum: 04/07/20 at 0005 by GHASSAN POZO RN Amended: Links added. Addendum: 04/07/20 at 0006 by GHASSAN POZO RN Amended: Links added. Addendum: 04/07/20 at 0006 by GHASSAN POZO RN Amended: Links added. Addendum: 04/07/20 at 0006 by GHASSAN POZO RN Amended: Links added.
--- NOTE | 2020-04-06 21:00 | NUR ---
Grimacing while enema was being given. Diprivan drip titrated.
--- NOTE | 2020-04-06 22:30 | NUR ---
Grimacing and biting on the ETT. Medicated with Morphine IV. Diprivan drip titrated up.
[2020-04-06] MEDS: MORPHINE SULFATE 2 MG/1 ML DISP.SYRIN IV PRN (22:32)
[2020-04-07] VITALS (31 sets, daily range): BP systolic 90–125; BP diastolic 49–69
[2020-04-07] MEDS: Z GUARD REMEDY PASTE 57 GM TUBE TOP PRN (01:41)
[2020-04-07] MEDS: PROPOFOL 100 ML IV PRN ×4 (01:41→18:33)
[2020-04-07] MEDS: POTASSIUM CHLORIDE 20 MEQ in IV D5 1/2 NS 1000 ML 1,000 ML IV PRN (02:04)
[2020-04-07] MEDS: MORPHINE SULFATE 2 MG/1 ML DISP.SYRIN IV PRN (02:19)
--- NOTE | 2020-04-07 05:30 | NUR ---
PATIENT REMAINS ORALLY INTUBATED ON ORDERED VENT SETTINGS. NO CHANGES MADE THROUGHOUT SHIFT. SUCTIONED NEEDED WITHOUT COMPLICATIONS. ALARMS ARE ON AND AUDIBLE WITH AMBUBAG AT BEDSIDE. WILL CONTINUE TO MONITOR.
[2020-04-07 05:50] LABS: BASOPHILS % (AUTO) 0.4 % (0.0-2.0); EOSINOPHILS # (AUTO) 0.2 K/uL (0.0-0.7); EOSINOPHILS % (AUTO) 2.1 % (0.0-7.0); HEMATOCRIT 26.7 % (36.7-47.1); HEMOGLOBIN 9.2 g/dL (12.5-16.3); LYMPHOCYTES # (AUTO) 2.7 K/uL (20.0-40.0); LYMPHOCYTES % (AUTO) 24.9 % (20.5-51.5); MEAN CORPUSCULAR HEMOGLOBIN 38.5 uug (23.8-33.4); MEAN CORPUSCULAR HGB CONC 35 g/dL (32.5-36.3); MEAN CORPUSCULAR VOLUME 111.4 fL (73.0-96.2); MONOCYTES # (AUTO) 1.7 K/uL (2.0-10.0); MONOCYTES % (AUTO) 15.5 % (0.0-11.0); NEUTROPHILS # (AUTO) 6.2 K/uL (1.8-8.9); NEUTROPHILS % (AUTO) 57.1 % (38.5-71.5); PLATELET COUNT (AUTO) 119 K/uL (152-348); WHITE BLOOD COUNT (AUTO) 10.8 K/uL (3.6-10.2)
[2020-04-07 06:03] LABS: MAGNESIUM 2.5 mg/dL (1.8-2.4); PHOSPHOROUS 2.9 mg/dL (2.5-4.9); POTASSIUM 2.9 mmol/L (3.5-5.1)
[2020-04-07 06:12] LABS: BILIRUBIN,DIRECT 28.2 mg/dL (0.0-0.2); BILIRUBIN,TOTAL 31.3 mg/dL (0.2-1.0); TOTAL PROTEIN, SERUM 6.4 g/dL (6.4-8.2)
[2020-04-07 06:28] LABS: ABG BASE EXCESS -7.9 mmol/L; ABG HCO3 16.3 mmol/L; ABG PCO2 28.6 mmHg (35.0-45.0); ABG PH 7.373 (7.350-7.450); ABG PO2 100.6 mmHg (75.0-100.0); ABG SITE LEFT RADIAL; ABG TOTAL HEMOGLOBIN 9.2 G/dL (13.5-18.0); COHb 1.9 % (0.5-1.5); MetHb 0.1 % (0.0-1.5); O2Hb 96.5 % (94.0-97.0); VENT MODE VENT - A/C; VT, ABG 500 mL
--- NOTE | 2020-04-07 07:00 | NUR ---
No neuro changes. Opens eyes to stimulation and pain. Diprivan drip remains at 40 mcg/kg/min. O2 sat maintaining above 96% on current vent settings.
[2020-04-07] MEDS: SPIRONOLACTONE 50 MG TABLET PO SCH (07:54)
[2020-04-07] MEDS: IRR STERIL WATER FOR IRR 700 ML, LACTULOSE 200 G PR SCH ×4 (07:55→21:04)
[2020-04-07] MEDS: PANTOPRAZOLE SODIUM 40 MG VIAL IV SCH (07:58)
[2020-04-07] MEDS: CEFTRIAXONE 1 G in IV DEXTROSE 5% 50 ML IV SCH (07:58)
--- NOTE | 2020-04-07 09:01 | NUR ---
Dr. Andres here to see pt. Full report given. New orders received.
[2020-04-07] MEDS: POTASSIUM CHLORIDE 50 ML IV SCH ×4 (09:46→13:30)
[2020-04-07] MEDS: POTASSIUM CHLORIDE 40 MEQ in IV D5 1/2 NS 1000 ML 1,000 ML IV PRN (09:59)
--- NOTE | 2020-04-07 12:48 | NUR ---
Dr. Cobian here to see pt. Full report given. No new orders received.
[2020-04-07 17:43] LABS: BAND % (MANUAL) 6 % (0-10); LYMPHOCYTES % (MANUAL) 19 % (20-40); MONOCYTES % (MANUAL) 6 % (2-10); NEUTROPHILS % (MANUAL) 62 % (42-75)
[2020-04-07 17:44] LABS: EOSINOPHILS % (MANUAL) 2 % (0-8); METAMYELOCYTES % 1 % (0-1); MYELOCYTES % 4 % (0-0)
[2020-04-07] MEDS: FOLIC ACID 1 MG in IV DEXTROSE 5% 50 ML IV SCH (17:52)
[2020-04-07] MEDS: THIAMINE HCL INJ 100 MG in IV DEXTROSE 5% 50 ML IV SCH (18:02)
[2020-04-08] VITALS (17 sets, daily range): BP systolic 92–118; BP diastolic 49–75
[2020-04-08] MEDS: PROPOFOL 100 ML IV PRN ×2 (00:03→05:39)
[2020-04-08] MEDS: POTASSIUM CHLORIDE 40 MEQ in IV D5 1/2 NS 1000 ML 1,000 ML IV PRN ×2 (02:12→20:43)
[2020-04-08 05:14] LABS: ABG BASE EXCESS -9.1 mmol/L; ABG HCO3 15.2 mmol/L; ABG PCO2 27.5 mmHg (35.0-45.0); ABG PH 7.359 (7.350-7.450); ABG PO2 107.8 mmHg (75.0-100.0); ABG SITE LEFT RADIAL; ABG TOTAL HEMOGLOBIN 9.7 G/dL (13.5-18.0); COHb 1.1 % (0.5-1.5); MetHb 0.3 % (0.0-1.5); O2Hb 96.7 % (94.0-97.0); VENT MODE VENT - A/C; VT, ABG 500 mL
[2020-04-08 06:01] LABS: BASOPHILS # (AUTO) 0.1 K/uL (0.0-8.0); BASOPHILS % (AUTO) 0.8 % (0.0-2.0); EOSINOPHILS # (AUTO) 0.1 K/uL (0.0-0.7); EOSINOPHILS % (AUTO) 0.7 % (0.0-7.0); HEMATOCRIT 26.4 % (36.7-47.1); LYMPHOCYTES # (AUTO) 1.7 K/uL (20.0-40.0); MEAN CORPUSCULAR HEMOGLOBIN 38.5 uug (23.8-33.4); MEAN CORPUSCULAR HGB CONC 34 g/dL (32.5-36.3); MEAN CORPUSCULAR VOLUME 112.7 fL (73.0-96.2); MONOCYTES # (AUTO) 2.2 K/uL (2.0-10.0); MONOCYTES % (AUTO) 21.3 % (0.0-11.0); NEUTROPHILS # (AUTO) 6.3 K/uL (1.8-8.9); NEUTROPHILS % (AUTO) 61.2 % (38.5-71.5); PLATELET COUNT (AUTO) 123 K/uL (152-348); WHITE BLOOD COUNT (AUTO) 10.4 K/uL (3.6-10.2)
[2020-04-08 06:10] LABS: CREATININE 1.2 mg/dL (0.6-1.3); MAGNESIUM 2.3 mg/dL (1.8-2.4); POTASSIUM 3.2 mmol/L (3.5-5.1)
[2020-04-08 06:18] LABS: BILIRUBIN,DIRECT 26.1 mg/dL (0.0-0.2); BILIRUBIN,TOTAL 29.5 mg/dL (0.2-1.0); TOTAL PROTEIN, SERUM 6.3 g/dL (6.4-8.2)
[2020-04-08 07:48] LABS: RED BLOOD CELL COUNT(AUTO) 2.34 MIL/uL (4.06-5.63)
[2020-04-08] MEDS: SPIRONOLACTONE 50 MG TABLET PO SCH (07:58)
[2020-04-08] MEDS: PANTOPRAZOLE SODIUM 40 MG VIAL IV SCH (08:05)
[2020-04-08] MEDS: CEFTRIAXONE 1 G in IV DEXTROSE 5% 50 ML IV SCH (08:06)
[2020-04-08] MEDS: IRR STERIL WATER FOR IRR 700 ML, LACTULOSE 200 G PR SCH ×2 (08:07)
[2020-04-08 09:45] LABS: ABG BASE EXCESS -9.7 mmol/L; ABG HCO3 14.2 mmol/L; ABG PH 7.372 (7.350-7.450); ABG PO2 104.4 mmHg (75.0-100.0); ABG SITE RIGHT RADIAL; ABG TOTAL HEMOGLOBIN 9.4 G/dL (13.5-18.0); COHb 1.5 % (0.5-1.5); CPAP,BG 0 cmH20; MetHb 0.2 % (0.0-1.5); O2Hb 96.7 % (94.0-97.0); VENT MODE VENT - CPAP PS6
[2020-04-08] MEDS: POTASSIUM CHLORIDE 50 ML IV SCH ×4 (10:18→15:44)
[2020-04-08] MEDS ORDERED: ALBUTEROL SULFATE 2.5 MG/3 ML NEBU NEB PRN (11:00)
[2020-04-08] MEDS ORDERED: DC PROPOFOL ONCE EXTUBATED XX PRN (11:00)
--- NOTE | 2020-04-08 11:00 | NUR ---
Dr. Andres here to see pt. Full report given. New orders received. Ok to extubate.
--- NOTE | 2020-04-08 11:10 | NUR ---
Pt extubated and placed on 3L nasal cannula. Pt saturating wnl.
--- NOTE | 2020-04-08 13:40 | NUR ---
Code lizy called. Pt combative and uncooperative.
--- NOTE | 2020-04-08 14:20 | NUR ---
DOCTOR SCHNEIDER IN THE UNIT DOWNGRADED TO TELE
[2020-04-08] MEDS: FOLIC ACID 1 MG in IV DEXTROSE 5% 50 ML IV SCH (16:40)
[2020-04-08 17:02] LABS: BAND % (MANUAL) 1 % (0-10); EOSINOPHILS % (MANUAL) 1 % (0-8); MONOCYTES % (MANUAL) 16 % (2-10); NEUTROPHILS % (MANUAL) 47 % (42-75)
[2020-04-08 17:03] LABS: LYMPHOCYTES % (MANUAL) 33 % (20-40); MYELOCYTES % 2 % (0-0)
[2020-04-08] MEDS: THIAMINE HCL INJ 100 MG in IV DEXTROSE 5% 50 ML IV SCH (17:49)
--- NOTE | 2020-04-08 17:55 | NUR ---
Pt pulled out rectal tube. Dr. Cobian already made aware. Addendum: 04/08/20 at 1821 by BALJEET HILLS RN Spoke with Dr. Cobian on the telephone and new orders received. To change irrigation lactulose to PO 30ml QID per .
[2020-04-08] MEDS: LACTULOSE 20 G/30 ML LIQUID UDC PO SCH ×3 (20:20→23:33)
[2020-04-08] MEDS: LORAZEPAM 2 MG/1 ML VIAL IV PRN (20:46)
[2020-04-09 00:01] VITALS: BP 101/72
[2020-04-09] MEDS: LORAZEPAM 2 MG/1 ML VIAL IV PRN ×2 (03:11→13:12)
[2020-04-09 04:00] VITALS: BP 133/79
[2020-04-09 05:23] LABS: BASOPHILS # (AUTO) 0.1 K/uL (0.0-8.0); BASOPHILS % (AUTO) 0.8 % (0.0-2.0); EOSINOPHILS % (AUTO) 0.5 % (0.0-7.0); HEMATOCRIT 27.7 % (36.7-47.1); HEMOGLOBIN 9.3 g/dL (12.5-16.3); LYMPHOCYTES # (AUTO) 1.4 K/uL (20.0-40.0); LYMPHOCYTES % (AUTO) 15.3 % (20.5-51.5); MEAN CORPUSCULAR HGB CONC 34 g/dL (32.5-36.3); MONOCYTES # (AUTO) 2.3 K/uL (2.0-10.0); MONOCYTES % (AUTO) 25.2 % (0.0-11.0); NEUTROPHILS # (AUTO) 5.2 K/uL (1.8-8.9); NEUTROPHILS % (AUTO) 58.2 % (38.5-71.5); PLATELET COUNT (AUTO) 145 K/uL (152-348)
[2020-04-09 05:41] LABS: BILIRUBIN,DIRECT 31.5 mg/dL (0.0-0.2); CREATININE 1.4 mg/dL (0.6-1.3); MAGNESIUM 2.5 mg/dL (1.8-2.4); PHOSPHOROUS 3.6 mg/dL (2.5-4.9); POTASSIUM 3.2 mmol/L (3.5-5.1); TOTAL PROTEIN, SERUM 6.8 g/dL (6.4-8.2)
[2020-04-09 06:07] LABS: BILIRUBIN,TOTAL 36.6 mg/dL (0.2-1.0)
[2020-04-09 06:23] LABS: RED BLOOD CELL COUNT(AUTO) 2.45 MIL/uL (4.06-5.63)
[2020-04-09] MEDS: LACTULOSE 20 G/30 ML LIQUID UDC PO SCH ×4 (06:31→18:00)
[2020-04-09] MEDS: CEFTRIAXONE 1 G in IV DEXTROSE 5% 50 ML IV SCH (07:51)
[2020-04-09 08:00] VITALS: BP 106/67
[2020-04-09] MEDS: SPIRONOLACTONE 50 MG TABLET PO SCH (08:05)
[2020-04-09] MEDS: PANTOPRAZOLE SODIUM 40 MG VIAL IV SCH (08:05)
[2020-04-09] MEDS: POTASSIUM CHLORIDE 50 ML IV SCH ×4 (09:38→12:04)
[2020-04-09] MEDS: POTASSIUM CHLORIDE 40 MEQ in IV D5W 1000ML 1,000 ML IV PRN ×2 (09:38→10:02)
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
[2020-04-09 12:00] VITALS: BP 127/83
--- NOTE | 2020-04-09 12:00 | NUR ---
For oral cephulac nursing swallow eval done pt. coughing and unable to swallow, and pt. drooling medication out of his mouth. Awaiting for an official swallow eval.
[2020-04-09 16:00] VITALS: BP 121/77
--- NOTE | 2020-04-09 16:00 | NUR ---
Speech social sciences instructor in the unit to evaluate pt's ability to swallow, and as reported and noted pt. fail swallow eval putting at high risk for aspiration precaution.
[2020-04-09] MEDS: FOLIC ACID 1 MG in IV DEXTROSE 5% 50 ML IV SCH (17:44)
--- NOTE | 2020-04-09 18:27 | NUR ---
Patient remains NPO after failing speech/swallow eval.
[2020-04-09] MEDS: THIAMINE HCL INJ 100 MG in IV DEXTROSE 5% 50 ML IV SCH (18:31)
[2020-04-09 19:40] LABS: BAND % (MANUAL) 9 % (0-10); EOSINOPHILS % (MANUAL) 2 % (0-8); LYMPHOCYTES % (MANUAL) 17 % (20-40); MONOCYTES % (MANUAL) 17 % (2-10); NEUTROPHILS % (MANUAL) 54 % (42-75)
[2020-04-09 19:41] LABS: MYELOCYTES % 1 % (0-0)
[2020-04-09] MEDS: chlorproMAZINE 50 MG/2 ML AMPUL IM PRN (19:50)
--- NOTE | 2020-04-09 19:57 | NUR ---
Thorazine given for agitation Vitals: 114/75, 100% on room air, 23 respirations, 86 HR
[2020-04-09 20:00] VITALS: BP 106/61
--- NOTE | 2020-04-09 23:03 | NUR ---
Patient remains NPO, skin assessed and patient repositioned, noted resting without signs of distress
--- NOTE | 2020-04-09 23:50 | NUR ---
Hand off report given to John aircraft riveter. Patient was transferred at this time up to room 330 via his bed. Patient remained awake but confused, no signs of SOB or distress. All personal belongings accompanied the patient.
[2020-04-10] MEDS: LORAZEPAM 2 MG/1 ML VIAL IV PRN ×3 (00:31→20:43)
[2020-04-10] MEDS: POTASSIUM CHLORIDE 40 MEQ in IV D5W 1000ML 1,000 ML IV PRN ×2 (00:38→14:26)
[2020-04-10] MEDS: chlorproMAZINE 50 MG/2 ML AMPUL IM PRN ×2 (02:02→10:23)
[2020-04-10 04:00] VITALS: BP 100/58
--- NOTE | 2020-04-10 04:48 | NUR ---
Pt awake and agitated. PRN medication being given for safety of patient. Will monitor and assess.
[2020-04-10] MEDS: LACTULOSE 20 G/30 ML LIQUID UDC PO SCH ×4 (06:00→17:12)
--- NOTE | 2020-04-10 07:30 | NUR ---
Received patient in bed. Patient is sleeping and not easily aroused. No respiratory distress noted at this time. Patient is on restrained, soft restraints and bilateral mittens. Safety precaution in place. Will continue to monitor.
[2020-04-10] MEDS: SPIRONOLACTONE 50 MG TABLET PO SCH ×2 (09:00→09:07)
[2020-04-10] MEDS: PANTOPRAZOLE SODIUM 40 MG VIAL IV SCH (09:07)
[2020-04-10] MEDS: CEFTRIAXONE 1 G in IV DEXTROSE 5% 50 ML IV SCH (09:47)
[2020-04-10 09:53] LABS: BASOPHILS # (AUTO) 0.1 K/uL (0.0-8.0); BASOPHILS % (AUTO) 1.4 % (0.0-2.0); EOSINOPHILS # (AUTO) 0.1 K/uL (0.0-0.7); EOSINOPHILS % (AUTO) 0.7 % (0.0-7.0); HEMOGLOBIN 9.4 g/dL (12.5-16.3); LYMPHOCYTES # (AUTO) 2.9 K/uL (20.0-40.0); LYMPHOCYTES % (AUTO) 35.3 % (20.5-51.5); MEAN CORPUSCULAR HEMOGLOBIN 38.3 uug (23.8-33.4); MEAN CORPUSCULAR HGB CONC 34 g/dL (32.5-36.3); MEAN CORPUSCULAR VOLUME 113.7 fL (73.0-96.2); MONOCYTES % (AUTO) 11.8 % (0.0-11.0); NEUTROPHILS # (AUTO) 4.1 K/uL (1.8-8.9); NEUTROPHILS % (AUTO) 50.8 % (38.5-71.5); PLATELET COUNT (AUTO) 114 K/uL (152-348); WHITE BLOOD COUNT (AUTO) 8.2 K/uL (3.6-10.2)
[2020-04-10 10:03] LABS: RED BLOOD CELL COUNT(AUTO) 2.46 MIL/uL (4.06-5.63)
[2020-04-10 10:16] LABS: BILIRUBIN,DIRECT 33.5 mg/dL (0.0-0.2); BILIRUBIN,TOTAL 38.7 mg/dL (0.2-1.0); CREATININE 1.9 mg/dL (0.6-1.3); MAGNESIUM 2.6 mg/dL (1.8-2.4); PHOSPHOROUS 5.1 mg/dL (2.5-4.9); POTASSIUM 3.7 mmol/L (3.5-5.1); TOTAL PROTEIN, SERUM 7.1 g/dL (6.4-8.2)
[2020-04-10 12:00] VITALS: BP 114/72
--- NOTE | 2020-04-10 14:46 | NUR ---
Patient still sedated, took vitals BP 102/68 with heart rate of 78 and oxygen saturation of 100%. Will continue to monitor
[2020-04-10 16:00] VITALS: BP 98/63
[2020-04-10] MEDS: FOLIC ACID 1 MG in IV DEXTROSE 5% 50 ML IV SCH (17:19)
[2020-04-10] MEDS: THIAMINE HCL INJ 100 MG in IV DEXTROSE 5% 50 ML IV SCH (18:17)
--- NOTE | 2020-04-10 19:30 | NUR ---
RECEIVED PT AWAKE AND IN NO ACUTE DISTRESS. IV INTACT.LE INTACT AND DRAINING DARK TEA COLORED URINE. SAFETY AND COMFORT PROVIDED. WILL CONTINUE TO MONITOR.
[2020-04-10 20:00] VITALS: BP 102/68
--- NOTE | 2020-04-10 20:18 | NUR ---
Left patient resting in bed, a bit more aroused but still sedated. His speech is slurred and the words are incoherent. Tried talking to his family but they said he is not making sense. Gave all medications as ordered. Safety precautions are in place. Will endorse to oncoming nurse
--- NOTE | 2020-04-10 21:43 | NUR ---
AT 2043H ATIVAN PRN GIVEN FOR PT RESTLESS. PT TOLERATED IT WELL. AFTER AN HOUR PT CALM.SAFETY AND COMFORT PROVIDED. WILL CONTINUE TO MONITOR.
[2020-04-11] MEDS: POTASSIUM CHLORIDE 40 MEQ in IV D5W 1000ML 1,000 ML IV PRN ×3 (01:41→21:57)
[2020-04-11 04:29] VITALS: BP 104/63
[2020-04-11] MEDS: LACTULOSE 20 G/30 ML LIQUID UDC PO SCH ×5 (05:03→22:57)
--- NOTE | 2020-04-11 06:10 | NUR ---
NON-ADMINISTERED MEDICATION FOR CEPHULAC FOR NPO DIAGNOSIS AND PT LETHARGIC.
--- NOTE | 2020-04-11 06:11 | NUR ---
PT SLEPT COMFORTABLY. PT IN NO ACUTE DISTRESS. IV INTACT. LE INTACT AND DRAINING WELL. PT TURNED AND REPOSITIONED. PT STILL CONFUSED. INCOHERENT SPEECH. BOWEL MOVEMENT COLOR IS DARK GREEN WITH BROWNISH LIQUID COLOR. SAFETY AND COMFORT PROVIDED. WILL ENDORSE TO INCOMING NURSE FOR CONTINUITY OF CARE.
[2020-04-11 07:19] LABS: BASOPHILS # (AUTO) 0.3 K/uL (0.0-8.0); BASOPHILS % (AUTO) 2.7 % (0.0-2.0); BILIRUBIN,TOTAL 37.4 mg/dL (0.2-1.0); EOSINOPHILS # (AUTO) 0.1 K/uL (0.0-0.7); EOSINOPHILS % (AUTO) 1.2 % (0.0-7.0); HEMATOCRIT 26.7 % (36.7-47.1); HEMOGLOBIN 8.9 g/dL (12.5-16.3); LYMPHOCYTES # (AUTO) 2.4 K/uL (20.0-40.0); LYMPHOCYTES % (AUTO) 22.7 % (20.5-51.5); MEAN CORPUSCULAR HGB CONC 33 g/dL (32.5-36.3); MONOCYTES # (AUTO) 1.3 K/uL (2.0-10.0); MONOCYTES % (AUTO) 12.1 % (0.0-11.0); NEUTROPHILS # (AUTO) 6.4 K/uL (1.8-8.9); NEUTROPHILS % (AUTO) 61.3 % (38.5-71.5); PLATELET COUNT (AUTO) 91 K/uL (152-348); TOTAL PROTEIN, SERUM 6.8 g/dL (6.4-8.2); WHITE BLOOD COUNT (AUTO) 10.5 K/uL (3.6-10.2)
[2020-04-11 07:26] LABS: RED BLOOD CELL COUNT(AUTO) 2.34 MIL/uL (4.06-5.63)
[2020-04-11 07:34] LABS: BILIRUBIN,DIRECT 32.4 mg/dL (0.0-0.2)
[2020-04-11] MEDS: SPIRONOLACTONE 50 MG TABLET PO SCH (09:00)
[2020-04-11] MEDS: PANTOPRAZOLE SODIUM 40 MG VIAL IV SCH (09:13)
[2020-04-11 11:52] VITALS: BP 102/67
--- NOTE | 2020-04-11 12:38 | NUR ---
SEEN BY DR TELLES. SEE MD NOTES FOR NEW ORDERS. PLACED NG TUBE PER MD ORDER. CALLED RADIOLOGY FOR CHEST XRAY - NG TUBE PLACEMENT. WILL CONTINUE TO MONITOR.
[2020-04-11 13:26] LABS: CREATININE 2.5 mg/dL (0.6-1.3)
[2020-04-11 13:56] LABS: POTASSIUM 7.8 mmol/L (3.5-5.1)
[2020-04-11 15:24] LABS: BASOPHILS % (AUTO) 0.3 % (0.0-2.0); EOSINOPHILS # (AUTO) 0.1 K/uL (0.0-0.7); HEMATOCRIT 27.6 % (36.7-47.1); LYMPHOCYTES # (AUTO) 2.7 K/uL (20.0-40.0); LYMPHOCYTES % (AUTO) 28.3 % (20.5-51.5); MEAN CORPUSCULAR HGB CONC 33 g/dL (32.5-36.3); MEAN CORPUSCULAR VOLUME 113.6 fL (73.0-96.2); MONOCYTES % (AUTO) 10.2 % (0.0-11.0); NEUTROPHILS # (AUTO) 5.8 K/uL (1.8-8.9); NEUTROPHILS % (AUTO) 60.2 % (38.5-71.5); PLATELET COUNT (AUTO) 87 K/uL (152-348); WHITE BLOOD COUNT (AUTO) 9.6 K/uL (3.6-10.2)
[2020-04-11 15:25] LABS: CREATININE 2.6 mg/dL (0.6-1.3); POTASSIUM 3.6 mmol/L (3.5-5.1)
[2020-04-11 15:46] LABS: RED BLOOD CELL COUNT(AUTO) 2.43 MIL/uL (4.06-5.63)
[2020-04-11 16:01] VITALS: BP 90/62
[2020-04-11] MEDS: FOLIC ACID 1 MG in IV DEXTROSE 5% 50 ML IV SCH (17:50)
[2020-04-11] MEDS: THIAMINE HCL INJ 100 MG in IV DEXTROSE 5% 50 ML IV SCH (18:15)
--- NOTE | 2020-04-11 19:30 | NUR ---
RECD PT IN BED, HOB UP, NGT IN PLACE,PT ALERT TO NAME ONLY,GAGANDEEP ACUTE DISTRESS NOTED,SOFT RESTRAINTS ON LAWRENCE HANDS, RELEASE EVERY HOUR, MONITORED CLOSELY,NEEDS ATTENDED TO,PICC LINE ON RIGHT UPPER ARM PATENT AND INTACT, IVF INFUSING WELL,NPO MAINTAINED,ORAL CARE RENDERED.
[2020-04-11 23:00] LABS: BAND % (MANUAL) 8 % (0-10); LYMPHOCYTES % (MANUAL) 18 % (20-40); MONOCYTES % (MANUAL) 2 % (2-10); MYELOCYTES % 3 % (0-0); NEUTROPHILS % (MANUAL) 69 % (42-75)
[2020-04-11] MEDS: MORPHINE SULFATE 2 MG/1 ML DISP.SYRIN IV PRN (23:30)
--- NOTE | 2020-04-12 01:24 | NUR ---
HAD A HUGE BOWEL MOVEMENT, CLEANED AND KEPT DRY,LE CATH DRAINING WELL TO HIGHLY CONCENTRATED URINE,PT IS JAUNDICED.REPOSITIONED FOR COMFORT.
[2020-04-12 02:27] VITALS: BP 153/80
[2020-04-12 04:20] VITALS: BP 105/67
[2020-04-12] MEDS: PANTOPRAZOLE SODIUM 40 MG VIAL IV SCH (06:45)
[2020-04-12] MEDS: LACTULOSE 20 G/30 ML LIQUID UDC PO SCH ×3 (06:45→18:00)
[2020-04-12 07:55] LABS: BASOPHILS # (AUTO) 0.1 K/uL (0.0-8.0); BASOPHILS % (AUTO) 0.9 % (0.0-2.0); EOSINOPHILS # (AUTO) 0.1 K/uL (0.0-0.7); EOSINOPHILS % (AUTO) 0.9 % (0.0-7.0); HEMATOCRIT 23.1 % (36.7-47.1); HEMOGLOBIN 7.6 g/dL (12.5-16.3); LYMPHOCYTES # (AUTO) 2.1 K/uL (20.0-40.0); LYMPHOCYTES % (AUTO) 23.2 % (20.5-51.5); MEAN CORPUSCULAR HEMOGLOBIN 38.4 uug (23.8-33.4); MEAN CORPUSCULAR HGB CONC 33 g/dL (32.5-36.3); MEAN CORPUSCULAR VOLUME 117.1 fL (73.0-96.2); NEUTROPHILS # (AUTO) 5.8 K/uL (1.8-8.9); PLATELET COUNT (AUTO) 70 K/uL (152-348)
[2020-04-12 08:00] VITALS: BP 97/71
[2020-04-12 08:03] LABS: RED BLOOD CELL COUNT(AUTO) 1.97 MIL/uL (4.06-5.63)
--- NOTE | 2020-04-12 08:16 | NUR ---
soft wrist restraints released q hour, circulatory check done,nothing unusual noted
[2020-04-12 08:19] LABS: MAGNESIUM 2.1 mg/dL (1.8-2.4)
[2020-04-12] MEDS: SPIRONOLACTONE 50 MG TABLET PO SCH (08:23)
[2020-04-12] MEDS: SODIUM BICARBONATE 8.4% 50 MEQ in IV D5W 1000ML 1,000 ML IV PRN ×2 (08:23→18:39)
[2020-04-12 08:25] LABS: BILIRUBIN,TOTAL 33.2 mg/dL (0.2-1.0); CREATININE 2.5 mg/dL (0.6-1.3); PHOSPHOROUS 5.1 mg/dL (2.5-4.9); TOTAL PROTEIN, SERUM 5.9 g/dL (6.4-8.2)
[2020-04-12 08:51] LABS: POTASSIUM 9.1 mmol/L (3.5-5.1)
[2020-04-12 09:28] LABS: ALDOSTERONE 1.6 ng/dL (0.0-30.0); RENIN 2.994 ng/mL/hr (0.167-5.380)
[2020-04-12] MEDS ORDERED: SODIUM POLYSTYRENE SULFONATE ENEMA 30 G/120 ML BOTTLE RC ONE (09:45)
[2020-04-12] MEDS ORDERED: diphenhydrAMINE 50 MG/1 ML VIAL IV ONE (09:45)
[2020-04-12 10:28] LABS: BASOPHILS # (AUTO) 0.2 K/uL (0.0-8.0); BASOPHILS % (AUTO) 1.6 % (0.0-2.0); EOSINOPHILS # (AUTO) 0.3 K/uL (0.0-0.7); EOSINOPHILS % (AUTO) 2.7 % (0.0-7.0); HEMATOCRIT 25.7 % (36.7-47.1); HEMOGLOBIN 8.6 g/dL (12.5-16.3); LYMPHOCYTES # (AUTO) 2.7 K/uL (20.0-40.0); LYMPHOCYTES % (AUTO) 27.5 % (20.5-51.5); MEAN CORPUSCULAR HEMOGLOBIN 38.6 uug (23.8-33.4); MEAN CORPUSCULAR HGB CONC 34 g/dL (32.5-36.3); MEAN CORPUSCULAR VOLUME 115.2 fL (73.0-96.2); MONOCYTES # (AUTO) 0.8 K/uL (2.0-10.0); MONOCYTES % (AUTO) 8.6 % (0.0-11.0); NEUTROPHILS # (AUTO) 5.8 K/uL (1.8-8.9); NEUTROPHILS % (AUTO) 59.6 % (38.5-71.5); PLATELET COUNT (AUTO) 75 K/uL (152-348); WHITE BLOOD COUNT (AUTO) 9.7 K/uL (3.6-10.2)
[2020-04-12 10:36] LABS: RED BLOOD CELL COUNT(AUTO) 2.23 MIL/uL (4.06-5.63)
[2020-04-12 10:37] LABS: CREATININE 2.6 mg/dL (0.6-1.3); POTASSIUM 3.7 mmol/L (3.5-5.1)
--- NOTE | 2020-04-12 11:30 | NUR ---
SPOKE WITH DIETITIAN. WILL BE FOLLOWING DIETITIAN RECOMMENDATION ON TUBE FEEDING OPTION. WILL NOTIFY
[2020-04-12 12:00] VITALS: BP 103/66
--- NOTE | 2020-04-12 12:46 | NUR ---
RECEIVED CALL FROM YAEL FROM LAB ABOUT CRITICAL LABS: H/H, POTASSIUM AND GLUCOSE. ORDERED REDRAW OF LABS. POTASSIUM, GLUCOSE AND H/H WERE WITHIN ACCEPTABLE PARAMETERS. WILL CONTINUE TO MONITOR.
--- NOTE | 2020-04-12 14:59 | NUR ---
PATIENT PULLED ON HIS NG TUBE AND WAS NOT ON THE 55 MARKER. MD NOTIFIED.
--- NOTE | 2020-04-12 18:07 | NUR ---
1800 NG TUBE MEDICATIONS HELD AWAITING NG TUBE PLACEMENT CONFIRMATION.
[2020-04-12] MEDS: THIAMINE HCL INJ 100 MG in IV DEXTROSE 5% 50 ML IV SCH (18:40)
[2020-04-12 18:48] LABS: *BILIRUBIN,URIN 3+ (NEGATIVE); *BLOOD, URINE TRACE (NEGATIVE); *CLARITY,URINE SLIGHTLY CLOUDY (CLEAR); *COLOR,URINE DARK YELLOW (YELLOW); *KETONES,URINE NEGATIVE (NEGATIVE); *UROBILINOGEN,URINE 0.2 E.U./dl (NORMAL); LEUKOCYTE ESTERASE ,URINE NEGATIVE (NEGATIVE); NITRITE, URINE NEGATIVE (NEGATIVE); PH,URINE 5.5 (5.0-8.0); UGLUCOSE TRACE (NEGATIVE)
[2020-04-12 18:57] LABS: *CREATININE,URINE 63.5 mg/dL (30-125); *URINE TOTAL PROTEIN RANDOM 113.6 mg/dL (<150/24HR)
[2020-04-12] MEDS: FOLIC ACID 1 MG in IV DEXTROSE 5% 50 ML IV SCH (19:00)
--- NOTE | 2020-04-12 19:30 | NUR ---
Pt received in bed, asleep. NG tube in place and confirmed by xray. Soft restraints on. Does not appear to be in any acute distress. No other issues or concerns at this time.
[2020-04-12 19:58] LABS: BAND % (MANUAL) 6 % (0-10); NEUTROPHILS % (MANUAL) 67 % (42-75)
[2020-04-12 19:59] LABS: EOSINOPHILS % (MANUAL) 1 % (0-8); LYMPHOCYTES % (MANUAL) 20 % (20-40); MONOCYTES % (MANUAL) 6 % (2-10)
[2020-04-12] MEDS: OSMOLITE 1.2 CAL 1,000 ML LIQUID NG PRN (20:19)
[2020-04-12 20:24] VITALS: BP 108/60
--- NOTE | 2020-04-12 21:00 | NUR ---
Pt pulled out his NG tube. New one was placed. Verified by chest xray. Addendum: 04/13/20 at 0342 by MOHAN ELAINE RN 04/12/2020 at 2300
[2020-04-12 22:21] LABS: BACTERIA,URINE FEW /HPF (NONE SEEN); COARSE GRANULAR CASTS,URINE FEW /LPF; MUCUS,URINE FEW /LPF (0-FEW); SQUAMOUS EPITHELIAL CELL,UR FEW /HPF (NONE SEEN); WBC,URINE 0-3 /HPF (0-3)
[2020-04-13 00:06] VITALS: BP 95/61
[2020-04-13] MEDS: LACTULOSE 20 G/30 ML LIQUID UDC PO SCH ×4 (00:24→17:10)
[2020-04-13] MEDS: MORPHINE SULFATE 2 MG/1 ML DISP.SYRIN IV PRN (00:47)
[2020-04-13 04:00] VITALS: BP 100/64
[2020-04-13] MEDS: SODIUM BICARBONATE 8.4% 50 MEQ in IV D5W 1000ML 1,000 ML IV PRN ×2 (04:49→18:38)
--- NOTE | 2020-04-13 06:15 | NUR ---
Pt slept intermittently throughout the night. Denies any pain at this time. GTube increased and is running at 35cc/hr. Tolerating well. On RA sating at 100%. Safety and comfort provided. No other issues or concerns at this time. Will endorse to day shift.
[2020-04-13 06:30] LABS: BASOPHILS # (AUTO) 0.1 K/uL (0.0-8.0); BASOPHILS % (AUTO) 1.5 % (0.0-2.0); EOSINOPHILS % (AUTO) 0.5 % (0.0-7.0); HEMATOCRIT 24.8 % (36.7-47.1); HEMOGLOBIN 8.5 g/dL (12.5-16.3); LYMPHOCYTES # (AUTO) 3.3 K/uL (20.0-40.0); LYMPHOCYTES % (AUTO) 39.3 % (20.5-51.5); MEAN CORPUSCULAR HEMOGLOBIN 38.5 uug (23.8-33.4); MEAN CORPUSCULAR HGB CONC 34 g/dL (32.5-36.3); MEAN CORPUSCULAR VOLUME 112.1 fL (73.0-96.2); MONOCYTES # (AUTO) 0.7 K/uL (2.0-10.0); MONOCYTES % (AUTO) 7.7 % (0.0-11.0); NEUTROPHILS # (AUTO) 4.3 K/uL (1.8-8.9); PLATELET COUNT (AUTO) 69 K/uL (152-348); WHITE BLOOD COUNT (AUTO) 8.5 K/uL (3.6-10.2)
[2020-04-13 06:43] LABS: BILIRUBIN,TOTAL 37.7 mg/dL (0.2-1.0); CREATININE 2.9 mg/dL (0.6-1.3); MAGNESIUM 2.1 mg/dL (1.8-2.4); PHOSPHOROUS 5.7 mg/dL (2.5-4.9); TOTAL PROTEIN, SERUM 6.5 g/dL (6.4-8.2)
[2020-04-13 09:37] LABS: RED BLOOD CELL COUNT(AUTO) 2.21 MIL/uL (4.06-5.63)
[2020-04-13] MEDS: PANTOPRAZOLE SODIUM 40 MG VIAL IV SCH (10:58)
[2020-04-13 11:50] VITALS: BP 94/57
[2020-04-13 13:08] LABS: POTASSIUM 2.8 mmol/L (3.5-5.1)
[2020-04-13 13:24] LABS: BASOPHILS # (AUTO) 0.1 K/uL (0.0-8.0); BASOPHILS % (AUTO) 0.6 % (0.0-2.0); EOSINOPHILS # (AUTO) 0.1 K/uL (0.0-0.7); EOSINOPHILS % (AUTO) 0.6 % (0.0-7.0); HEMATOCRIT 24.1 % (36.7-47.1); HEMOGLOBIN 8.2 g/dL (12.5-16.3); LYMPHOCYTES # (AUTO) 4.5 K/uL (20.0-40.0); LYMPHOCYTES % (AUTO) 49.2 % (20.5-51.5); MEAN CORPUSCULAR HEMOGLOBIN 37.8 uug (23.8-33.4); MEAN CORPUSCULAR HGB CONC 34 g/dL (32.5-36.3); MONOCYTES # (AUTO) 0.6 K/uL (2.0-10.0); MONOCYTES % (AUTO) 6.3 % (0.0-11.0); NEUTROPHILS # (AUTO) 3.9 K/uL (1.8-8.9); NEUTROPHILS % (AUTO) 43.3 % (38.5-71.5); PLATELET COUNT (AUTO) 63 K/uL (152-348); WHITE BLOOD COUNT (AUTO) 9.1 K/uL (3.6-10.2)
[2020-04-13 13:39] LABS: BAND % (MANUAL) 3 % (0-10); EOSINOPHILS % (MANUAL) 2 % (0-8); LYMPHOCYTES % (MANUAL) 14 % (20-40); MONOCYTES % (MANUAL) 4 % (2-10); NEUTROPHILS % (MANUAL) 77 % (42-75)
[2020-04-13 13:45] LABS: RED BLOOD CELL COUNT(AUTO) 2.17 MIL/uL (4.06-5.63)
--- NOTE | 2020-04-13 14:20 | NUR ---
Informed Dr. Garay regarding potassium result, ordered 60mEq potassiuim x 1 dose.
[2020-04-13] MEDS ORDERED: POTASSIUM CHLORIDE 20 MEQ POWDER PACKET NG ONE (14:30)
[2020-04-13 16:13] VITALS: BP 97/56
[2020-04-13] MEDS: FOLIC ACID 1 MG in IV DEXTROSE 5% 50 ML IV SCH (17:04)
[2020-04-13] MEDS: THIAMINE HCL INJ 100 MG in IV DEXTROSE 5% 50 ML IV SCH (17:56)
[2020-04-13 20:47] VITALS: BP 98/80
[2020-04-13] MEDS: LORAZEPAM 2 MG/1 ML VIAL IV PRN (21:58)
--- NOTE | 2020-04-13 22:00 | NUR ---
Received patient awake and confused. No s/s of acute distress. Pt on RA denies SOB and pain. NG tube in place with feeding at 35ml/hr. Residual at 60ml. Pt agitated when assisting to change, hitting and kicking staff. Soft restraints in place with q15 min checks in place and released q2 hrs. Johnson in place draining via gravity. Will continue to monitor.
[2020-04-14] MEDS: LACTULOSE 20 G/30 ML LIQUID UDC PO SCH ×2 (00:21→06:24)
[2020-04-14] MEDS: OSMOLITE 1.2 CAL 1,000 ML LIQUID NG PRN (00:22)
--- NOTE | 2020-04-14 00:30 | NUR ---
NG Tube Feeding paused at 2200. Resumed at 0022 @35ml/hr. Residual 70cc. Will endorse to morning
[2020-04-14 01:01] VITALS: BP 91/58
--- NOTE | 2020-04-14 02:20 | NUR ---
blood transfusion complete. no reactions. patient tolerated well. will continue to monitor. Addendum: 04/15/20 at 0 by MARTINEZ MCKEON RN unable to document in patients file. paper transfusion sheet in patients chart documented with v/s. Addendum: 04/15/20 at 399 by MARTINEZ MCKEON RN wrong time. for 04/15/20 at 0220.
[2020-04-14] MEDS: SODIUM BICARBONATE 8.4% 50 MEQ in IV D5W 1000ML 1,000 ML IV PRN ×3 (04:06→19:05)
[2020-04-14 05:53] VITALS: BP 133/57
--- NOTE | 2020-04-14 06:28 | NUR ---
Pt slept intermittently. Remains confused. No s/s of acute distress. Pt on RA denies SOB and pain. NG tube in place. Residual check at 0600 120cc. Paused feeding to resume again at 0800. Johnson patent draining via gravity. Safety precautions remained in place, safety checks and restraint care maintained. Will endorse to oncoming staff.
--- NOTE | 2020-04-14 07:30 | NUR ---
Received patient resting bed, dozing of intermittently. Patient is severely sedated. Made MD aware. No sign of distress noted. Patient is having rectal bleeding. Patient denies any pain. Safety precautions in place with call light an belongings within reach. Will continue to monitor.
--- NOTE | 2020-04-14 08:38 | NUR ---
Notified Dr. Ware of pt status. No new orders at this time. Continue to hold feeding until residual is less than 40cc. Will endorse to morning shift.
[2020-04-14] MEDS: PANTOPRAZOLE SODIUM 40 MG VIAL IV SCH (09:26)
[2020-04-14 11:00] VITALS: BP 91/56
[2020-04-14 14:50] LABS: BILIRUBIN,TOTAL 34.7 mg/dL (0.2-1.0); CREATININE 3.3 mg/dL (0.6-1.3); POTASSIUM 3.2 mmol/L (3.5-5.1); TOTAL PROTEIN, SERUM 5.8 g/dL (6.4-8.2)
[2020-04-14 15:28] LABS: BASOPHILS # (AUTO) 0.1 K/uL (0.0-8.0); BASOPHILS % (AUTO) 1.1 % (0.0-2.0); EOSINOPHILS % (AUTO) 0.4 % (0.0-7.0); HEMOGLOBIN 7.5 g/dL (12.5-16.3); LYMPHOCYTES # (AUTO) 2.5 K/uL (20.0-40.0); LYMPHOCYTES % (AUTO) 26.3 % (20.5-51.5); MEAN CORPUSCULAR HEMOGLOBIN 37.2 uug (23.8-33.4); MEAN CORPUSCULAR HGB CONC 34 g/dL (32.5-36.3); MONOCYTES # (AUTO) 0.7 K/uL (2.0-10.0); MONOCYTES % (AUTO) 7.1 % (0.0-11.0); NEUTROPHILS # (AUTO) 6.3 K/uL (1.8-8.9); NEUTROPHILS % (AUTO) 65.1 % (38.5-71.5); WHITE BLOOD COUNT (AUTO) 9.7 K/uL (3.6-10.2)
[2020-04-14 15:33] LABS: RED BLOOD CELL COUNT(AUTO) 2.01 MIL/uL (4.06-5.63)
[2020-04-14 15:36] LABS: PLATELET COUNT (AUTO) 49 K/uL (152-348)
--- NOTE | 2020-04-14 15:38 | NUR ---
Received report of critical lab from [facility]. contacted. Awaiting orders. Will continue to monitor.
[2020-04-14 16:00] VITALS: BP 97/44
[2020-04-14] MEDS: LACTULOSE 20 G/30 ML LIQUID UDC NG SCH ×3 (17:08→23:29)
--- NOTE | 2020-04-14 17:18 | NUR ---
Patient took out his NG tube. He says he does not want the tube in and he does not want to have a blood transfusion. Will make MD aware. Will continue to monitor.
--- NOTE | 2020-04-14 17:24 | NUR ---
Made MD aware that the patient pulled out NG tube and is refusing blood transfusion. Will continue to monitor.
[2020-04-14] MEDS: FOLIC ACID 1 MG in IV DEXTROSE 5% 50 ML IV SCH (18:25)
[2020-04-14] MEDS: THIAMINE HCL INJ 100 MG in IV DEXTROSE 5% 50 ML IV SCH (19:05)
--- NOTE | 2020-04-14 19:30 | NUR ---
patient received at beginning of shift unable to receive a temperature reading. will continue to try.
--- NOTE | 2020-04-14 20:14 | NUR ---
Patient is resting in bed, he is more alert but still severely confused. Gave all medications as ordered. Safety precautions are in place including soft restraints and mittens. Will endorse to oncoming nurse.
[2020-04-14 20:21] VITALS: BP 99/41
[2020-04-14 20:36] LABS: BAND % (MANUAL) 2 % (0-10); LYMPHOCYTES % (MANUAL) 13 % (20-40); NEUTROPHILS % (MANUAL) 82 % (42-75)
[2020-04-14 20:37] LABS: EOSINOPHILS % (MANUAL) 1 % (0-8); MONOCYTES % (MANUAL) 2 % (2-10)
--- NOTE | 2020-04-14 21:00 | NUR ---
night nursing meter repair shop supervisor calixto contacted for temperature gun reading. unable to find.
--- NOTE | 2020-04-14 22:10 | NUR ---
cristy madera, boat patcher plastic contacted for BP of 99/41, unable to get temperature reading despite trying tempadot and with various temperature check machines available, and bear hugger unavailable right now.
--- NOTE | 2020-04-14 22:30 | NUR ---
nursing locomotive supervisor informed RN that ce martins is unavailable at this time.
--- NOTE | 2020-04-14 23:13 | NUR ---
patient kicking off warm blankets despite continuously placing on body. will continue to try.
--- NOTE | 2020-04-14 23:20 | NUR ---
cristy madera np gave orders to give blood transfusion without temperature reading. will closely monitor.
[2020-04-14 23:55] LABS: LYMPHOCYTES % (MANUAL) 23 % (20-40); MONOCYTES % (MANUAL) 12 % (2-10); NEUTROPHILS % (MANUAL) 65 % (42-75)
[2020-04-15] VITALS (14 sets, daily range): BP systolic 72–100; BP diastolic 26–43
--- NOTE | 2020-04-15 02:20 | NUR ---
blood transfusion complete. no reactions. patient tolerated well. will continue to monitor. unable to document in patients file. paper transfusion sheet in patients chart documented with v/s.
--- NOTE | 2020-04-15 03:22 | NUR ---
dr. samuel contacted regarding patients BP 75/37, HR 60. patient is currently actively bleeding and 1 unit of blood is transfused.
--- NOTE | 2020-04-15 03:58 | NUR ---
no response from doctor. [employer] contacted and paged for 2nd time.
--- NOTE | 2020-04-15 04:11 | NUR ---
contacted dr. samuel for 3rd time.
--- NOTE | 2020-04-15 04:19 | NUR ---
jimmie contacted for 4th time. orders received to transfuse 1 unit of blood and CBC stat. Addendum: 04/15/20 at 0637 by MARTINEZ MCKEON RN CBC to be collected after 1 unit of transfused blood.
[2020-04-15] MEDS: LACTULOSE 20 G/30 ML LIQUID UDC NG SCH ×3 (05:26→16:36)
--- NOTE | 2020-04-15 05:26 | NUR ---
Unable to administer lactulose. patient is NPO and no NG in place at this time. patient is refusing.
--- NOTE | 2020-04-15 08:00 | NUR ---
Nima Nuñez started secondary to pt if very cold to touch and unable to get TEMPERATURE throughout metrology specialist. Will monitor patient.
[2020-04-15 08:30] LABS: BASOPHILS # (AUTO) 0.1 K/uL (0.0-8.0); BASOPHILS % (AUTO) 0.7 % (0.0-2.0); EOSINOPHILS # (AUTO) 0.1 K/uL (0.0-0.7); EOSINOPHILS % (AUTO) 0.5 % (0.0-7.0); LYMPHOCYTES # (AUTO) 1.8 K/uL (20.0-40.0); LYMPHOCYTES % (AUTO) 17.9 % (20.5-51.5); MEAN CORPUSCULAR HEMOGLOBIN 36.7 uug (23.8-33.4); MEAN CORPUSCULAR HGB CONC 35 g/dL (32.5-36.3); MONOCYTES # (AUTO) 0.8 K/uL (2.0-10.0); MONOCYTES % (AUTO) 8.5 % (0.0-11.0); NEUTROPHILS # (AUTO) 7.3 K/uL (1.8-8.9); NEUTROPHILS % (AUTO) 72.4 % (38.5-71.5)
[2020-04-15] MEDS: PANTOPRAZOLE SODIUM 40 MG VIAL IV SCH (08:46)
[2020-04-15 09:32] LABS: RED BLOOD CELL COUNT(AUTO) 1.76 MIL/uL (4.06-5.63)
[2020-04-15 09:37] LABS: HEMATOCRIT 18.3 % (36.7-47.1); HEMOGLOBIN 6.4 g/dL (12.5-16.3); PLATELET COUNT (AUTO) 34 K/uL (152-348)
--- NOTE | 2020-04-15 10:25 | NUR ---
DR TELLES notified of low h/h 6.4/18.3. and plt of 34. B/P 67/27 hr of 55 o2 sat 100% on r/a. PT is transferred to ICU but no bed availability per supervisor inspection. Dr penayan to talk with family regarding status of patient.
[2020-04-15 10:28] LABS: CREATININE 4.1 mg/dL (0.6-1.3)
[2020-04-15 10:30] LABS: POTASSIUM 2.8 mmol/L (3.5-5.1)
--- NOTE | 2020-04-15 12:19 | NUR ---
Unable to give lactulose. Pt too lethargic. Pt non responsive.
[2020-04-15] MEDS: LORAZEPAM 2 MG/1 ML VIAL IV PRN (13:20)
[2020-04-15] MEDS: POTASSIUM CHLORIDE 50 ML IV SCH ×6 (14:52→20:29)
[2020-04-15] MEDS: SODIUM BICARBONATE 8.4% 50 MEQ in IV D5W 1000ML 1,000 ML IV PRN (14:56)
--- NOTE | 2020-04-15 15:00 | NUR ---
1418 Family SURAJ and Kitty daughter and mother here to see patient. Family decide on status of patient as DNR and DNI.
[2020-04-15] MEDS: THIAMINE HCL INJ 100 MG in IV DEXTROSE 5% 50 ML IV SCH (17:47)
[2020-04-15] MEDS: FOLIC ACID 1 MG in IV DEXTROSE 5% 50 ML IV SCH (17:47)
[2020-04-15 18:03] LABS: BAND % (MANUAL) 2 % (0-10); EOSINOPHILS % (MANUAL) 2 % (0-8); LYMPHOCYTES % (MANUAL) 8 % (20-40); MONOCYTES % (MANUAL) 8 % (2-10); NEUTROPHILS % (MANUAL) 80 % (42-75)
--- NOTE | 2020-04-15 18:30 | NUR ---
Pt tolerated blood transfusion 1 UNIT PRBC. Pt had 2x soaking bright red bloody and clotted stool this shift.
--- NOTE | 2020-04-15 19:00 | NUR ---
recd pt in bed, very jaundiced,confused and extremely weak..triple lumen picc line on rt upper arm patent and intact,no acute resp distress noted.2 pt. [address] restraints in place, checked for circulation every hour, , monitored closely.kept dry and clean.
[2020-04-15] MEDS ORDERED: SODIUM BICARBONATE IV PRN ×2 (20:30→20:32)
[2020-04-15] MEDS ORDERED: DEXTROSE 50% IV PRN (20:30)
[2020-04-15] MEDS ORDERED: [UNRECOGNIZED DRUG - OTHER] IV PRN (20:32)
[2020-04-15] MEDS: MIDODRINE HCL 5 MG TABLET PO SCH (21:00)
--- NOTE | 2020-04-15 21:00 | NUR ---
repeat h/h done,6.3 and18.1. appears lethargic,vital signs taken and recorded,
[2020-04-15] MEDS: OCTREOTIDE ACETATE 50 MCG/1 ML ML SQ SCH (21:43)
[2020-04-15 21:57] LABS: HEMATOCRIT 18.1 % (36.7-47.1); HEMOGLOBIN 6.3 g/dL (12.5-16.3)
[2020-04-15] MEDS ORDERED: ACETAMINOPHEN 325 MG TABLET PO ONE ×2 (22:00→22:45)
[2020-04-15] MEDS ORDERED: diphenhydrAMINE 50 MG/1 ML VIAL IV ONE ×2 (22:00→22:45)
--- NOTE | 2020-04-15 22:30 | NUR ---
DR TATE CALLED AND ASCERTAINED PTS ., CONDITION,SPOKE W/ THR UNDERSIGNED AND GAVE NEW ORDERS ,GRACHNA Casiano MD NOTIFIED REGARDING P;S CONTINUOUS PASSING OUT OF BRIGHT RED FECAL MATERIAL, ADVISED TO BE TRANSFERRED TO HIGHER LEVEL OF CARE, BUT NO ROOM AVAILABLE IN THE UNIT, NEEDS ATTENDED TO.
[2020-04-15] MEDS ORDERED: PHYTONADIONE 10 MG/1 ML AMPUL SQ ONE (22:45)
[2020-04-16] VITALS (8 sets, daily range): BP systolic 78–85; BP diastolic 31–42
[2020-04-16] MEDS ORDERED: MORPHINE SULFATE 2 MG/1 ML DISP.SYRIN IV PRN
--- NOTE | 2020-04-16 | NUR ---
TAN SPANGLER,SUPERVISOR BLEACH PLANT , CONCURRED W/EACH OTHER,PT IS NOW ON COMFORT MEASURES ONLY.PT GETTING RESTLESS , MOANING AND FACIAL GRIMACE NOTED. GIVEN MORPHINE 1 MG IV ORDERED. HS CARE DONE R.EPOSITIONED AND MADE COMFORTABLE.CLEANED AND KEPT DRY, STILL W/ CLUMPS OF BRIGHT RED FECAL MATERIAL FROM RECTUM NOTED.LE CATH IN PLACE AND DRAINING TO DARK CONCENTRATED URINE/
--- NOTE | 2020-04-16 02:48 | NUR ---
SOFT RESTRAINTS ONBIL ARMS RELEASED SIMULTANEOUSLY, PT RESTING QUIETLY IN BED. CONTINUE TO MONITOR.
--- NOTE | 2020-04-16 05:24 | NUR ---
pt is dnr, resting comfortably, slept intermittently.
--- NOTE | 2020-04-16 05:33 | NUR ---
PETRA'S FAMILY WAS CALLED BY UNDERSIGNED AND CONFIRMED REGARDING CODE STATUS AND THAT PT WAS PUT ON COMFORT MEASURES ONLY BY TAN SPANGLER OF LAST NOC AT 0000. Jillian MAYA AND HER CONCURRED ABOVE.
--- NOTE | 2020-04-16 06:58 | NUR ---
dr. merry milligan and dr. richardson both were notified regarding patient's code status. no new orders received. am care done pt in no distress.
[2020-04-16] MEDS ORDERED: SODIUM BICARBONATE 8.4% 50 MEQ in IV D5W 1000ML 1,000 ML IV PRN (07:30)
--- NOTE | 2020-04-16 08:00 | NUR ---
pt clarified as comfort measures only and no meds EXCEPT PRNs for comfort. PT lethargic would wake up from time to time and respond to his name. Pt comfortable no grimace noted. Restraint released secondary to pt quiet and sleeping. Repositioned. Right brachial triple lumen intact and all 3/3 port functioning and flushed. Call light is within reach.
[2020-04-16 08:09] LABS: BILIRUBIN,TOTAL 28.3 mg/dL (0.2-1.0); POTASSIUM 3.2 mmol/L (3.5-5.1); TOTAL PROTEIN, SERUM 4.2 g/dL (6.4-8.2)
[2020-04-16] MEDS: PANTOPRAZOLE SODIUM 40 MG VIAL IV SCH (09:00)
[2020-04-16] MEDS: MIDODRINE HCL 5 MG TABLET PO SCH (09:00)
[2020-04-16] MEDS: OCTREOTIDE ACETATE 50 MCG/1 ML ML SQ SCH ×2 (10:39→14:00)
[2020-04-16] MEDS: LACTULOSE 20 G/30 ML LIQUID UDC NG SCH ×3 (10:39→12:00)
--- NOTE | 2020-04-16 10:41 | NUR ---
Clarified comfort measures ordered from last night with TAN ZAMORA. NO meds, Morphine 2mg iv q 4 hr prn, Ativan 1mg iv q4 hr prn.
[2020-04-16 11:40] LABS: BASOPHILS # (AUTO) 0.1 K/uL (0.0-8.0); BASOPHILS % (AUTO) 0.6 % (0.0-2.0); EOSINOPHILS % (AUTO) 0.4 % (0.0-7.0); LYMPHOCYTES # (AUTO) 1.5 K/uL (20.0-40.0); LYMPHOCYTES % (AUTO) 12.8 % (20.5-51.5); MEAN CORPUSCULAR HEMOGLOBIN 34.6 uug (23.8-33.4); MEAN CORPUSCULAR HGB CONC 35 g/dL (32.5-36.3); MEAN CORPUSCULAR VOLUME 99.3 fL (73.0-96.2); MONOCYTES # (AUTO) 1.3 K/uL (2.0-10.0); MONOCYTES % (AUTO) 11.5 % (0.0-11.0); NEUTROPHILS # (AUTO) 8.7 K/uL (1.8-8.9); NEUTROPHILS % (AUTO) 74.7 % (38.5-71.5); PLATELET COUNT (AUTO) 54 K/uL (152-348); WHITE BLOOD COUNT (AUTO) 11.7 K/uL (3.6-10.2)
[2020-04-16 11:50] LABS: HEMATOCRIT 20.3 % (36.7-47.1); HEMOGLOBIN 7.1 g/dL (12.5-16.3); RED BLOOD CELL COUNT(AUTO) 2.04 MIL/uL (4.06-5.63)
[2020-04-16] MEDS: LORAZEPAM 2 MG/1 ML VIAL IV PRN ×2 (12:22→22:40)
--- NOTE | 2020-04-16 12:30 | NUR ---
PT aggressively attempting to hit WIRE STRETCHER at bedside. Decreased stimuli non effective. Ativan given for agitation.
--- NOTE | 2020-04-16 13:00 | NUR ---
Pt sleeping. Ativan effective.
--- NOTE | 2020-04-16 17:41 | NUR ---
Pt had x 1 bloody stool with clots fully soaked with blood. Pt is still actively beeding. Pt comfortable.
--- NOTE | 2020-04-16 19:00 | NUR ---
pt in bed,resting quietly, no acute distress noted. remains confused and anxious, kept dry and clan, picc line patent and intact on right upper arm, repositioned for comfort. needs attended to. vital signs w/i limits.garcia cath in place draining scant amount of very dark urine.skin very jaundiced, warm to touch. hs care done, had a big bowel movement of bright red fecal matter.comfort measures observed.
--- NOTE | 2020-04-16 22:40 | NUR ---
facial grimace,moaning and restlessness noted, medicated w/ ativan 1 mg. as ordered,soft wrist restraints released , rom to both arms done. slept on and off.continue to monitor for any untoward changes in condition.safety measures observed.
[2020-04-17 01:42] VITALS: BP 80/41
--- NOTE | 2020-04-17 02:13 | NUR ---
pt on dnr status.kept warm and comfortable
[2020-04-17 04:20] VITALS: BP 73/35
[2020-04-17 06:57] LABS: BILIRUBIN,TOTAL 30.2 mg/dL (0.2-1.0); CREATININE 7.4 mg/dL (0.6-1.3); POTASSIUM 2.9 mmol/L (3.5-5.1); TOTAL PROTEIN, SERUM 4.4 g/dL (6.4-8.2)
[2020-04-17 07:44] LABS: BASOPHILS # (AUTO) 0.1 K/uL (0.0-8.0); BASOPHILS % (AUTO) 0.7 % (0.0-2.0); EOSINOPHILS % (AUTO) 0.6 % (0.0-7.0); LYMPHOCYTES # (AUTO) 1.2 K/uL (20.0-40.0); LYMPHOCYTES % (AUTO) 14.5 % (20.5-51.5); MEAN CORPUSCULAR HEMOGLOBIN 36.4 uug (23.8-33.4); MEAN CORPUSCULAR HGB CONC 35 g/dL (32.5-36.3); MEAN CORPUSCULAR VOLUME 103.4 fL (73.0-96.2); MONOCYTES # (AUTO) 0.8 K/uL (2.0-10.0); MONOCYTES % (AUTO) 10.3 % (0.0-11.0); NEUTROPHILS % (AUTO) 73.9 % (38.5-71.5); WHITE BLOOD COUNT (AUTO) 8.1 K/uL (3.6-10.2)
--- NOTE | 2020-04-17 08:00 | NUR ---
Pt on comfort measure. Pt lethargic easily waken up. PT is in no pain and no grimacing noted. Triple lumen central line intact on right brachial. Call light is within reach.
[2020-04-17 08:14] LABS: RED BLOOD CELL COUNT(AUTO) 1.84 MIL/uL (4.06-5.63)
[2020-04-17 08:16] LABS: HEMOGLOBIN 6.7 g/dL (12.5-16.3); PLATELET COUNT (AUTO) 34 K/uL (152-348)
[2020-04-17] MEDS: POTASSIUM CHLORIDE 50 ML IV SCH ×3 (09:45→11:45)
--- NOTE | 2020-04-17 11:00 | NUR ---
Pt awake with eyes open pt confused only alert to name. Pt able to follow simple directions. Call light is within reach.
[2020-04-17 12:11] VITALS: BP 90/49
[2020-04-17] MEDS: MORPHINE SULFATE 2 MG/1 ML DISP.SYRIN IV PRN ×2 (15:23→15:27)
--- NOTE | 2020-04-17 17:00 | NUR ---
Dr magdaleno spoke with family to clarify how aggressive they want the treatment to patient. Ordered [address] magdaleno.
[2020-04-17 17:21] VITALS: BP 91/48
[2020-04-17] MEDS ORDERED: PHYTONADIONE 10 MG/1 ML AMPUL SQ ONE (17:30)
--- NOTE | 2020-04-17 19:00 | NUR ---
Received patient from AM nurse. Safety measures in place. Patient on Bilateral Soft Wrist restraints. Plan of care to be implemented. Will monitor and assess.
--- NOTE | 2020-04-17 19:07 | NUR ---
Pt is in no acute distress. Call light is within reach. PT had x 2 soaking actively bleeding diapers changed today with clots.
[2020-04-17 19:36] LABS: LYMPHOCYTES % (MANUAL) 15 % (20-40); MONOCYTES % (MANUAL) 13 % (2-10); NEUTROPHILS % (MANUAL) 72 % (42-75)
[2020-04-17 20:00] VITALS: BP 82/41
[2020-04-17 20:29] VITALS: BP 84/38
[2020-04-17] MEDS ORDERED: NORMAL SALINE IV PRN (22:00)
[2020-04-17] MEDS ORDERED: [UNRECOGNIZED DRUG - OTHER] IV PRN (22:00)
--- NOTE | 2020-04-18 | NUR ---
Patients blood transfused with no adverse reactions. BP at 88/46 post transfusion. VSS. Afebrile. Will monitor and assess.
[2020-04-18] MEDS ORDERED: FAMOTIDINE. 20 MG/2 ML VIAL IV ONE (00:45)
[2020-04-18 04:00] VITALS: BP 82/43
--- NOTE | 2020-04-18 06:58 | NUR ---
Patient handed off to AM nurse. VSS. Stable condition. All pertinent information given. Safety measures in place. Will monitor and assess.
[2020-04-18] MEDS ORDERED: FAMOTIDINE. 20 MG/2 ML VIAL IV SCH (09:00)
[2020-04-18 09:14] LABS: MAGNESIUM 2.5 mg/dL (1.8-2.4)
[2020-04-18 09:19] LABS: POTASSIUM 3.1 mmol/L (3.5-5.1); TOTAL PROTEIN, SERUM 4.4 g/dL (6.4-8.2)
[2020-04-18] MEDS: LORAZEPAM 2 MG/1 ML VIAL IV PRN (09:55)
[2020-04-18] MEDS: PANTOPRAZOLE SODIUM 40 MG VIAL IV SCH ×2 (09:55→22:57)
[2020-04-18 09:57] LABS: BASOPHILS # (AUTO) 0.1 K/uL (0.0-8.0); BASOPHILS % (AUTO) 0.8 % (0.0-2.0); EOSINOPHILS % (AUTO) 0.5 % (0.0-7.0); LYMPHOCYTES # (AUTO) 1.3 K/uL (20.0-40.0); LYMPHOCYTES % (AUTO) 14.8 % (20.5-51.5); MEAN CORPUSCULAR HEMOGLOBIN 35.5 uug (23.8-33.4); MEAN CORPUSCULAR HGB CONC 35 g/dL (32.5-36.3); MEAN CORPUSCULAR VOLUME 100.8 fL (73.0-96.2); MONOCYTES # (AUTO) 1.1 K/uL (2.0-10.0); MONOCYTES % (AUTO) 12.1 % (0.0-11.0); NEUTROPHILS # (AUTO) 6.3 K/uL (1.8-8.9); NEUTROPHILS % (AUTO) 71.8 % (38.5-71.5); WHITE BLOOD COUNT (AUTO) 8.8 K/uL (3.6-10.2)
[2020-04-18 10:00] LABS: HEMATOCRIT 20.2 % (36.7-47.1); HEMOGLOBIN 7.1 g/dL (12.5-16.3); PLATELET COUNT (AUTO) 29 K/uL (152-348)
[2020-04-18 10:01] LABS: PHOSPHOROUS 14.4 mg/dL (2.5-4.9)
[2020-04-18 11:00] VITALS: BP 125/106
[2020-04-18] MEDS ORDERED: PHYTONADIONE 10 MG/1 ML AMPUL SQ ONE (12:30)
[2020-04-18 16:00] VITALS: BP 81/31
[2020-04-18 18:19] LABS: LYMPHOCYTES % (MANUAL) 15 % (20-40); MONOCYTES % (MANUAL) 15 % (2-10); NEUTROPHILS % (MANUAL) 70 % (42-75)
--- NOTE | 2020-04-18 20:30 | NUR ---
Received patient awake and alert to name and location, resting quietly. No s/s of acute distress noted. Safety measures in place. Soft wrist restraints in place, q15 min checks and q2hr release. Right upper arm PICC patent and intact. Will continue to monitor.
[2020-04-18 22:00] VITALS: BP 75/30
--- NOTE | 2020-04-18 23:30 | NUR ---
Pt with low temp 90.8. Notified Giancarlo placed order for Nima CARBALLO. Will continue to monitor.
[2020-04-19] VITALS (28 sets, daily range): BP systolic 62–127; BP diastolic 25–87
--- NOTE | 2020-04-19 07:30 | NUR ---
Received patient in bed, awake and alert to name and location, not in any form of acute distress, on room air. Safety measures in place. Soft wrist restraints in place. Right upper arm PICC line intact and patent. Will continue to monitor.
[2020-04-19] MEDS: PANTOPRAZOLE SODIUM 40 MG VIAL IV SCH ×2 (09:52→21:42)
--- NOTE | 2020-04-19 10:10 | NUR ---
Informed Dr. Tang regarding BP of 59/20 HR 64, , O2 99% at room air, Temp 97.4. Per MD transfer patient to ICU but no available bed at the moment as per taping supervisor. Dr. Tang ordered IV NS 250cc IV bolus. Patient remains alert, verbally responsive oriented to self, no complain of any pain or discomfort.
[2020-04-19] MEDS ORDERED: IV NORMAL SALINE 250 ML IV ONE (10:30)
--- NOTE | 2020-04-19 10:40 | NUR ---
BP increased to 67/22 HR 66. Report given to Jeff WESTFALL at CCU.
--- NOTE | 2020-04-19 11:00 | NUR ---
Transferred patient to CCU
--- NOTE | 2020-04-19 11:03 | NUR ---
Received patient from med/surg floor patient hypotensive will start on levophed drip notified physician. Contacted lab to draw blood, and received orders for blood transfusion. Patient placed on monitor saturation of 100% on room air, afebrile, confused and combative. Patient is sinus rhythm on the monitor.
[2020-04-19] MEDS ORDERED: NOREPINEPHRINE BITARTRATE 8 MG in IV NORMAL SALINE 242 ML IV PRN (11:15)
[2020-04-19] MEDS ORDERED: PHYTONADIONE 10 MG/1 ML AMPUL SQ ONE (11:30)
[2020-04-19] MEDS ORDERED: MEROPENEM 250 MG in IV NORMAL SALINE 50 ML IV SCH (11:30)
[2020-04-19 11:48] LABS: BASOPHILS % (AUTO) 0.2 % (0.0-2.0); EOSINOPHILS # (AUTO) 0.2 K/uL (0.0-0.7); EOSINOPHILS % (AUTO) 2.2 % (0.0-7.0); LYMPHOCYTES # (AUTO) 0.9 K/uL (20.0-40.0); LYMPHOCYTES % (AUTO) 8.6 % (20.5-51.5); MEAN CORPUSCULAR HEMOGLOBIN 35.3 uug (23.8-33.4); MEAN CORPUSCULAR HGB CONC 35 g/dL (32.5-36.3); MEAN CORPUSCULAR VOLUME 101.7 fL (73.0-96.2); MONOCYTES # (AUTO) 1.4 K/uL (2.0-10.0); NEUTROPHILS # (AUTO) 8.2 K/uL (1.8-8.9); WHITE BLOOD COUNT (AUTO) 10.8 K/uL (3.6-10.2)
[2020-04-19] MEDS: NOREPINEPHRINE BITARTRATE 8 MG in IV NORMAL SALINE 242 ML IV PRN ×2 (11:51→17:41)
[2020-04-19] MEDS ORDERED: MEROPENEM 0.5 G in IV NORMAL SALINE 50 ML IV SCH (12:00)
[2020-04-19 12:04] LABS: MAGNESIUM 2.3 mg/dL (1.8-2.4)
[2020-04-19 12:10] LABS: HEMATOCRIT 15.6 % (36.7-47.1); HEMOGLOBIN 5.4 g/dL (12.5-16.3); RED BLOOD CELL COUNT(AUTO) 1.54 MIL/uL (4.06-5.63)
[2020-04-19 12:11] LABS: PLATELET COUNT (AUTO) 31 K/uL (152-348)
[2020-04-19 12:12] LABS: PHOSPHOROUS 17.3 mg/dL (2.5-4.9)
[2020-04-19] MEDS ORDERED: VANCOMYCIN IV 1,000 MG in IV DEXTROSE 5% 250 ML IV ONE (13:00)
[2020-04-19] MEDS ORDERED: NOREPINEPHRINE BITARTRATE 32 MG in IV NORMAL SALINE 218 ML IV PRN (18:15)
[2020-04-19 18:20] LABS: POTASSIUM 3.4 mmol/L (3.5-5.1)
[2020-04-19 18:26] LABS: CREATININE 10.1 mg/dL (0.6-1.3)
[2020-04-19] MEDS ORDERED: IV NORMAL SALINE 250 ML IV PRN (18:55)
--- NOTE | 2020-04-19 20:08 | NUR ---
Patient had a dialysis catheter placed by Dr. Mg on right groin, and dialyzed with no output today. Patient given 2 units of blood and one unit of platelets. Patient is currently on levophed 0.8mcg/kg/hr, sinus rhythm on the monitor, saturation 100% on room, air mattress inflated. patient on restraints.
[2020-04-19 22:44] LABS: LYMPHOCYTES % (MANUAL) 8 % (20-40); MONOCYTES % (MANUAL) 14 % (2-10); NEUTROPHILS % (MANUAL) 78 % (42-75)
[2020-04-20] VITALS (13 sets, daily range): BP systolic 90–100; BP diastolic 31–53
[2020-04-20] MEDS: LORAZEPAM 2 MG/1 ML VIAL IV PRN (02:22)
--- NOTE | 2020-04-20 04:00 | NUR ---
Temp 94.5 AX resumed Nima Hugger. Noted some oral & rectal bleeding.
[2020-04-20 05:07] LABS: HEPATITIS B SURFACE AB Reactive (.); HEPATITIS B SURFACE AG Negative (Negative)
[2020-04-20 05:38] LABS: BASOPHILS # (AUTO) 0.1 K/uL (0.0-8.0); BASOPHILS % (AUTO) 0.3 % (0.0-2.0); EOSINOPHILS % (AUTO) 0.1 % (0.0-7.0); LYMPHOCYTES # (AUTO) 3.8 K/uL (20.0-40.0); LYMPHOCYTES % (AUTO) 17.2 % (20.5-51.5); MEAN CORPUSCULAR HEMOGLOBIN 34.4 uug (23.8-33.4); MEAN CORPUSCULAR HGB CONC 35 g/dL (32.5-36.3); MEAN CORPUSCULAR VOLUME 97.5 fL (73.0-96.2); MONOCYTES # (AUTO) 3.2 K/uL (2.0-10.0); MONOCYTES % (AUTO) 14.6 % (0.0-11.0); NEUTROPHILS # (AUTO) 14.9 K/uL (1.8-8.9); NEUTROPHILS % (AUTO) 67.8 % (38.5-71.5); PLATELET COUNT (AUTO) 85 K/uL (152-348); WHITE BLOOD COUNT (AUTO) 21.9 K/uL (3.6-10.2)
[2020-04-20 05:59] LABS: BILIRUBIN,TOTAL 25.3 mg/dL (0.2-1.0); CREATININE 6.5 mg/dL (0.6-1.3); POTASSIUM 3.3 mmol/L (3.5-5.1); TOTAL PROTEIN, SERUM 3.6 g/dL (6.4-8.2); VANCOMYCIN,RANDOM 15.4 ug/mL (18.0-26.0)
--- NOTE | 2020-04-20 06:00 | NUR ---
TAN SPANGLER WAS INFORMED OF CRITICAL LAB RESULTS OF [facility] ALBUMIN , BLOOD PRESURE AND CURRENT MEDICATIONS PATIENT RECEIVING , AND BLOOD RECEIVED LAST NIGH T, RECEIVED ORDER OF NS 500 ML BOLUS AND 2 UNITS OF PRBC
[2020-04-20 06:03] LABS: RED BLOOD CELL COUNT(AUTO) 1.59 MIL/uL (4.06-5.63)
[2020-04-20 06:05] LABS: HEMATOCRIT 15.5 % (36.7-47.1); HEMOGLOBIN 5.5 g/dL (12.5-16.3)
[2020-04-20 06:22] LABS: PHOSPHOROUS 8.8 mg/dL (2.5-4.9)
[2020-04-20] MEDS ORDERED: IV NORMAL SALINE 500 ML IV ONE (06:30)
[2020-04-20] MEDS ORDERED: PHENYLEPHRINE IV 50 MG in IV NORMAL SALINE 245 ML IV PRN (06:30)
[2020-04-20] MEDS: PANTOPRAZOLE SODIUM 40 MG VIAL IV SCH (07:44)
--- NOTE | 2020-04-20 10:05 | NUR ---
Pt . Pt apneic for 5 minutes. Pupils fixed and dilated. No audible heart tones, breath sounds for 1 minute. No palpable pulses for 1 minute. No corneal reflexes. Dr. Tang and Maintenance Associate made aware and notified. Spoke with Emelia (mother) on the telephone and made aware.
--- NOTE | 2020-04-20 11:20 | NUR ---
Pt brought down to the [facility] by security and nursing injection molding supervisor. Personal belongings tagged and brought with the pt.
[2020-04-20] MEDS ORDERED: VANCOMYCIN IV 1,000 MG in IV DEXTROSE 5% 250 ML IV SCH (13:00)
[2020-04-21 12:19] LABS: NEUTROPHILS % (MANUAL) 0 % (42-75)
== END 2020-04-20 11:33 | disposition expired | DRG 280 ==
LOC: ER 16:12 → CCU 19:37 → TELE3 04-10 00:18 → MEDSURG3 04-10 11:15 → TELE3 04-12 10:35 → TELE-TD3 04-15 12:00 → MEDSURG3 04-16 11:57 → CCU 04-19 11:00
PROVIDERS: ADMIT Nurse Practitioner Acute Care; ATTEND Internal Medicine
PROC: 30233N1 Transfusion of Nonautologous Red Blood Cells into Peripheral Vein, Percutaneous Approach (ICD-10-PCS; principal; 2020-04-01)
PROC: 30233K1 Transfusion of Nonautologous Frozen Plasma into Peripheral Vein, Percutaneous Approach (ICD-10-PCS; 2020-04-02)
PROC: B548ZZA Ultrasonography of Superior Vena Cava, Guidance (ICD-10-PCS; 2020-04-02)
PROC: 02HV33Z Insertion of Infusion Device into Superior Vena Cava, Percutaneous Approach (ICD-10-PCS; 2020-04-02)
PROC: 5A1955Z Respiratory Ventilation, Greater than 96 Consecutive Hours (ICD-10-PCS; 2020-04-03)
PROC: 0BH17EZ Insertion of Endotracheal Airway into Trachea, Via Natural or Artificial Opening (ICD-10-PCS; 2020-04-03)
PROC: 30243K1 Transfusion of Nonautologous Frozen Plasma into Central Vein, Percutaneous Approach (ICD-10-PCS; 2020-04-04)
PROC: 06L38CZ Occlusion of Esophageal Vein with Extraluminal Device, Via Natural or Artificial Opening Endoscopic (ICD-10-PCS; 2020-04-04)
PROC: B548ZZA Ultrasonography of Superior Vena Cava, Guidance (ICD-10-PCS; 2020-04-19)
PROC: 5A1D70Z Performance of Urinary Filtration, Intermittent, Less than 6 Hours Per Day (ICD-10-PCS; 2020-04-19)
PROC: 02HV33Z Insertion of Infusion Device into Superior Vena Cava, Percutaneous Approach (ICD-10-PCS; 2020-04-19)
PROC: 30243R1 Transfusion of Nonautologous Platelets into Central Vein, Percutaneous Approach (ICD-10-PCS; 2020-04-19)
DX: K70.30 Alcoholic cirrhosis of liver without ascites (principal); A41.9 Sepsis, unspecified organism; I85.11 Secondary esophageal varices with bleeding; K65.2 Spontaneous bacterial peritonitis; E87.6 Hypokalemia; E83.42 Hypomagnesemia; K70.10 Alcoholic hepatitis without ascites; K70.40 Alcoholic hepatic failure without coma; D68.4 Acquired coagulation factor deficiency; D62 Acute posthemorrhagic anemia; G92 Toxic encephalopathy; K76.6 Portal hypertension; K31.89 Other diseases of stomach and duodenum; K71.7 Toxic liver disease with fibrosis and cirrhosis of liver; D69.6 Thrombocytopenia, unspecified; D68.9 Coagulation defect, unspecified; E16.2 Hypoglycemia, unspecified; E83.39 Other disorders of phosphorus metabolism; E87.0 Hyperosmolality and hypernatremia; E87.1 Hypo-osmolality and hyponatremia; E87.5 Hyperkalemia; E46 Unspecified protein-calorie malnutrition; F17.210 Nicotine dependence, cigarettes, uncomplicated; I44.0 Atrioventricular block, first degree; J96.01 Acute respiratory failure with hypoxia; J96.02 Acute respiratory failure with hypercapnia; K52.9 Noninfective gastroenteritis and colitis, unspecified; K76.7 Hepatorenal syndrome; K86.1 Other chronic pancreatitis; N17.0 Acute kidney failure with tubular necrosis; N20.0 Calculus of kidney; R04.0 Epistaxis; R13.10 Dysphagia, unspecified; Z87.442 Personal history of urinary calculi; Z90.49 Acquired absence of other specified parts of digestive tract; R73.9 Hyperglycemia, unspecified; M43.16 Spondylolisthesis, lumbar region
CPT/HCPCS: 36415; 36569; 36600; 70030-TC; 71045; 76700; 76770; 82088; 83010; 83550; 83605; 83615; 83690; 83735; 84100; 84132; 84133; 84155; 84156; 84165; 84244; 84300; 84443; 84478; 84480; 85018; 85025; 85610; 85730; 86706; 86850; 86900; 86901; 86920; 87040; 87070; 87086; 87340; 90937; 93005; 93307; 94002; 94003; A4217; A4663; C9113; G0378; G0480; J0330; J0696; J1200; J2060; J2185; J2270; J2354; J2370; J2405; J3230; J3370; J3411; J3430; J3475; J3480; J3490; J7030; J7040; J7042; J7050; J7060; J7070; P9016-BL; P9017-BL; P9021; P9035-BL